=== PATIENT | male | born 1945 | race Caucasian/White ===

== ENCOUNTER → 2016-11-21 | Outpatient (CLI) | payer BC ==
[~2016-11-21] MED LIST: ASPI81TA28 PO; CHOL400T; LISI-461 PO; SIMV20TA2 PO
--- NOTE | 2016-11-25 12:40 | CODING QUERY MEDICAL NECESSITY ---
CQSUPPORTING DIAGNOSIS NEEDED A supporting diagnosis is required for the test/procedure performed on this patient in order for us to be reimbursed by the patient's insurance. Please provide a supporting diagnosis for the following test/procedure listed below next to the test name along with your signature. *If there is no additional diagnosis for this patient that would support the following test/procedure please document that below next to the test/procedure. Test(s)/Procedure(s) that require a supporting diagnosis: JAZZ 11/21/16 BONE MINERAL DENSITY STUDY Provider Signature: Date: Thank you Joyce Narayanan Health Information Management Once completed, please kindly fax back to [phone] For questions please call [phone]
== END | disposition home or self-care (01) ==
LOC: C.MAMM 14:18
PROVIDERS: ATTEND Internal Medicine
DX: M85.80 Other specified disorders of bone density and structure, unspecified site (principal); Z87.828 Personal history of other (healed) physical injury and trauma

== ENCOUNTER → 2016-11-23 | Outpatient (CLI) | payer BC ==
[2016-11-23 12:50] LABS: BASO % 0.9 %; BASO ABS # 0.05 K/uL (0-0.2); COMPLETE YES; EOS % 7.6 %; HEMATOCRIT 40.4 % (42-52); IG% 0.2 %; LYMPH % 20.1 %; LYMPH ABS # 1.14 K/uL (1.2-3.4); MEAN CELL VOLUME 90.8 fL (80-100); MEAN CORPUSCULAR HEMOGLOBIN 30.8 pg (25-34); MEAN CORPUSCULAR HGB CONC 33.9 g/dl (32-36); MEAN PLATELET VOLUME 10.2 fL (7.4-10.4); MONO % 14.1 %; NEUT % 57.1 %; PLATELET COUNT 269 K/uL (130-400); RED BLOOD COUNT 4.45 M/uL (4.7-6.1); WHITE BLOOD COUNT 5.67 K/uL (4.8-10.8)
[2016-11-23 13:09] LABS: ESTIMATED AVERAGE GLUCOSE 120 mg/dl; HA1C FLAG Normal (Normal)
[2016-11-23 13:20] LABS: ALT/SGPT 32 U/L (12-78); AST/SGOT 20 U/L (15-37); BLOOD UREA NITROGEN 16 mg/dl (7-18); BUN/CREATININE RATIO 15.7 (10-20); CALCIUM 9.3 mg/dl (8.5-10.1); CARBON DIOXIDE 24 mmol/L (21-32); CHLORIDE 106 mmol/L (98-107); GLUCOSE 84 mg/dl (70-99); POTASSIUM 4.3 mmol/L (3.5-5.1); SODIUM 141 mmol/L (136-145)
[2016-11-23 13:31] LABS: ALB/GLOB RATIO 1.1 (0.9-2); ALKALINE PHOSPHATASE 63 U/L (45-117); CHOLESTEROL 177 mg/dl (0-200); CHOLESTEROL/HDL RATIO 2.4; HDL CHOLESTEROL 74 mg/dl; LDL CHOLESTEROL CALCULATED 89 mg/dl; THYROID STIMULATING HORMONE 0.557 uIu/ml (0.300-4.500); TRIGLYCERIDES 70 mg/dl (0-150); VERY LOW DENSITY LIPOPROT CALC 14 mg/dl
== END | disposition home or self-care (01) ==
LOC: C.LABBFT 10:59
PROVIDERS: ATTEND Internal Medicine
DX: E78.00 Pure hypercholesterolemia, unspecified (principal); I10 Essential (primary) hypertension; R73.01 Impaired fasting glucose

== ENCOUNTER → 2017-02-09 | Outpatient (CLI) | payer BC | END | disposition home or self-care (01) | LOC: C.LABBFT 13:56 | PROVIDERS: ATTEND Urology | DX: C61 Malignant neoplasm of prostate (principal) ==

== ENCOUNTER → 2017-05-26 | Outpatient (CLI) | payer BC ==
[2017-05-26 12:30] LABS: BASO % 0.5 %; BASO ABS # 0.03 K/uL (0-0.2); COMPLETE YES; EOS % 6.5 %; HEMATOCRIT 42.5 % (42-52); IG% 0.3 %; LYMPH % 19.7 %; LYMPH ABS # 1.27 K/uL (1.2-3.4); MEAN CELL VOLUME 91.6 fL (80-100); MEAN CORPUSCULAR HEMOGLOBIN 30.6 pg (25-34); MEAN CORPUSCULAR HGB CONC 33.4 g/dl (32-36); MEAN PLATELET VOLUME 10.5 fL (7.4-10.4); MONO % 14.4 %; NEUT % 58.6 %; PLATELET COUNT 276 K/uL (130-400); RED BLOOD COUNT 4.64 M/uL (4.7-6.1); WHITE BLOOD COUNT 6.46 K/uL (4.8-10.8)
[2017-05-26 13:12] LABS: ALT/SGPT 31 U/L (12-78); BLOOD UREA NITROGEN 20 mg/dl (7-18); BUN/CREATININE RATIO 18.5 (10-20); CALCIUM 9.5 mg/dl (8.5-10.1); CARBON DIOXIDE 23 mmol/L (21-32); CHLORIDE 107 mmol/L (98-107); CHOLESTEROL 180 mg/dl (0-200); GLUCOSE 90 mg/dl (70-99); POTASSIUM 4.6 mmol/L (3.5-5.1); SODIUM 138 mmol/L (136-145); TRIGLYCERIDES 48 mg/dl (0-150); VERY LOW DENSITY LIPOPROT CALC 10 mg/dl
[2017-05-26 13:22] LABS: ALB/GLOB RATIO 1.1 (0.9-2); ALKALINE PHOSPHATASE 61 U/L (45-117); AST/SGOT 22 U/L (15-37); CHOLESTEROL/HDL RATIO 2.6; HDL CHOLESTEROL 69 mg/dl; LDL CHOLESTEROL CALCULATED 101 mg/dl; THYROID STIMULATING HORMONE 0.958 uIu/ml (0.300-4.500)
[2017-05-26 13:23] LABS: ESTIMATED AVERAGE GLUCOSE 120 mg/dl; HA1C FLAG Normal (Normal)
== END | disposition home or self-care (01) ==
LOC: C.LABBFT 09:19
PROVIDERS: ATTEND Internal Medicine
DX: E78.00 Pure hypercholesterolemia, unspecified (principal); I10 Essential (primary) hypertension; R73.01 Impaired fasting glucose

== ENCOUNTER → 2017-08-22 | Outpatient (CLI) | payer BC | END | disposition home or self-care (01) | LOC: C.LABBFT 09:29 | PROVIDERS: ATTEND Urology | DX: C61 Malignant neoplasm of prostate (principal) ==

== ENCOUNTER → 2017-12-06 | Outpatient (CLI) | payer BC ==
[2017-12-06 12:27] LABS: HEMATOCRIT 43.3 % (42-52); HEMOGLOBIN 14.7 g/dL (14.0-18.0); MEAN CELL VOLUME 93.1 fL (80-100); MEAN CORPUSCULAR HEMOGLOBIN 31.6 pg (25-34); MEAN CORPUSCULAR HGB CONC 33.9 g/dl (32-36); PLATELET COUNT 257 K/uL (130-400); RED CELL DISTRIBUTION WIDTH CV 13.6 % (11.5-14.5); RED CELL DISTRIBUTION WIDTH SD 46.3 fL (36.4-46.3); WHITE BLOOD COUNT 6.62 K/uL (4.8-10.8)
[2017-12-06 12:51] LABS: HEMOGLOBIN A1C 5.7 % (4.5-5.6)
[2017-12-06 12:58] LABS: ALBUMIN 3.9 gm/dl (3.4-5.0); BLOOD UREA NITROGEN 18 mg/dl (7-18); CALCIUM 9.6 mg/dl (8.5-10.1); CARBON DIOXIDE 25 mmol/L (21-32); CREATININE 1.04 mg/dl (0.60-1.40); GLUCOSE 95 mg/dl (70-99); POTASSIUM 4.8 mmol/L (3.5-5.1); SODIUM 138 mmol/L (136-145)
[2017-12-06 13:04] LABS: ALKALINE PHOSPHATASE 54 U/L (45-117); ALT/SGPT 27 U/L (12-78); AST/SGOT 18 U/L (15-37); CHOLESTEROL 165 mg/dl (0-200); LDL CHOLESTEROL CALCULATED 85 mg/dl; TOTAL PROTEIN 7.8 gm/dl (6.4-8.2)
== END | disposition home or self-care (01) ==
LOC: C.LABBFT 10:05
PROVIDERS: ATTEND Internal Medicine
DX: E78.00 Pure hypercholesterolemia, unspecified (principal); I10 Essential (primary) hypertension; R73.01 Impaired fasting glucose

== ENCOUNTER → 2018-02-12 | Day surgery (SDC) | payer BC ==
[2018-01-30 08:53] VITALS: Ht 175.3 cm; Wt 74.1 kg
[~2018-02-12] VITALS: Ht 175.3 cm; Wt 74.1 kg
[~2018-02-12] MED LIST changes: +ASPCH81X PO; -ASPI81TA28 PO; +CHOL100010 PO; -CHOL400T; +LIDOCAINE HCL 2% 2 ML VIAL (20MG/ML) ONE; +PHENYLEPHRINE 100MCG/ML 5ML SYR ONE; +PROPOFOL IV EMULSION 10 MG/ML 20 ML VIAL IV ONE; +SODIUM CHLORIDE 0.9% 500ML 500 ML IV ONE
--- NOTE | 2018-02-12 10:40 | Endo History and Physical ---
History & Physical Date of Service: Feb 12, 2018. Chief Complaint: HX OF POLYPS Referring Physician: DR VELAZQUEZ History of Present Illness 73 yo CM who presents for colonoscopy secondary to history of colon polyps. Past Surgical History Hx Cardiac Surgery: No Hx Internal Defibrillator: No Hx Pacemaker: No Hx Abdominal Surgery: Yes (APPY, INGUINAL HERNIA) Hx of Implantable Prosthesis: No Hx Post-Op Nausea and Vomiting: No Hx Cancer Surgery: Yes (TOTAL PROSTATECTOMY) Hx Thoracic Surgery: No Hx Orthopedic: No Hx Urinary Tract Surgery: No Family History None Social History Smoking Status: Never Smoker Hx Substance Use: No Hx Alcohol Use: Yes (1 GLASS OF WINE DAILY ON AVERAGE) Allergies Coded Allergies: NO KNOWN DRUG ALLERGIES (Verified Allergy, Unknown, ., 02/12/18) Uncoded Allergies: POISON SUDHEER (Allergy, Unknown, IRRITATION, 01/30/18) Current Medications Reported Home Medications Medications Dose Route/Sig Max Daily Dose Days Date Category Vitamin D (Cholecalciferol) 1,000 Unit Tab 1 Tab PO HS 01/30/18 Reported Aspirin Chewable (Aspirin) 81 Mg Chew 81 Mg PO HS 01/30/18 Reported Zestril (Lisinopril) 10 Mg Tab 10 Mg PO HS 01/30/18 Reported Zocor (Simvastatin) 20 Mg Tab 20 Mg PO HS 01/30/18 Reported Vital Signs Weight (Kilograms): 74.09 Height (Feet): 5 Height (Inches): 9 Date Time Temp Pulse Resp B/P (MAP) Pulse Ox O2 Delivery O2 Flow Rate FiO2 02/12/18 10:33 36.6 82 18 140/80 (100) 96 Room Air Physical Exam General Appearance: WD/WN, no apparent distress Respiratory/Chest: Auscultation: breath sounds normal Cardiovascular: Heart Auscultation: RRR Abdomen: Bowel Sounds: normal Inspection & Palpation: soft, non-distended, no tenderness, guarding & rebound Assessment and Plan Assessment: 73 yo CM who presents for colonoscopy secondary to history of colon polyps. Plan: Proceed with colonoscopy.
--- NOTE | 2018-02-12 11:38 | Discharge Instructions ---
Endoscopy Patient Instructions Date / Procedure(s) Performed Feb 12, 2018. Colonoscopy Allergy Information Coded Allergies: NO KNOWN DRUG ALLERGIES (Verified Allergy, Unknown, ., 02/12/18) Uncoded Allergies: POISON SUDHEER (Allergy, Unknown, IRRITATION, 01/30/18) Discharge Date / Findings Feb 12, 2018. Colon polyps Internal hemorrhoids Medication Instructions Stopped Medication(s): ASPIRIN OK to resume all medications today as prescribed Reported Home Medications Medications Dose Route/Sig Max Daily Dose Days Date Category Vitamin D (Cholecalciferol) 1,000 Unit Tab 1 Tab PO HS 01/30/18 Reported Aspirin Chewable (Aspirin) 81 Mg Chew 81 Mg PO HS 01/30/18 Reported Zestril (Lisinopril) 10 Mg Tab 10 Mg PO HS 01/30/18 Reported Zocor (Simvastatin) 20 Mg Tab 20 Mg PO HS 01/30/18 Reported Provider Instructions Activity Restrictions - No exercising or heavy lifting for 24 hours. - Do not drink alcohol the day of the procedure. - Do not drive a car or operate machinery until the day after the procedure. - Do not make any important decisions or sign important papers in 24 hours after the procedure. Following Day: - Return to full activity which may include returning to work/school. Diet Start your diet with liquids and light foods (jello, soup, juice, toast). Then eat your usual diet if not nauseated. Treatment For Common After Affects For mild abdominal pain, bloating, or excessive gas: - Rest - Eat lightly - Lie on right side Follow-Up Information Follow-up with DR VELAZQUEZ as scheduled Anesthesia Information What You Should Know You have had a procedure that required some medicine to reduce anxiety and discomfort. This treatment is called moderate sedation. After receiving the treatment, you may be sleepy, but you will be able to breathe on your own. The effects of the treatment may last for several hours. Follow these instructions along with Activity/Diet recommendations noted above: * Do NOT do anything where dizziness or clumsiness would be dangerous. * Rest quietly at home today, then you can be up and about tomorrow. * Have a responsible person stay with you the rest of today. * You may have had an I.V. today. If so, you may take the dressing off later today. Recommendations Call your doctor if: * Trouble breathing * Continuous vomiting for more than 24 hours * Temperature above 101 degrees * Severe abdominal pain or bloating * Pain not relieved by pain medicine ordered * There is increased drainage or redness from any incision * A large amount of rectal bleeding greater than 2-3 tablespoons. (If you had a polyp/s removed or have hemorrhoids, a small amount of blood - from the rectum is to be expected.) * You have any unanswered questions or concerns. IN THE EVENT OF A SERIOUS EMERGENCY, GO TO THE NEAREST EMERGENCY ROOM Your discharge instructions were prepared by provider Main Fletcher. Patient Instructions Signature Page Dima Morales Patient (or Guardian) Signature/Date: I have read and understand the instructions given to me by my caregivers. Caregiver/RN/Doctor Signature/Date: The above-named patient and/or guardian has received patient instructions on this date. + Original Patient Signature Page (only) stays with chart. Please make copy for patient.
--- NOTE | 2018-02-12 11:50 | GI REPORT ---
Procedure Date: 02/12/2018 10:48 AM Procedure: Colonoscopy Indications: High risk colon cancer surveillance: Personal history of colonic polyps Medicines: Monitored Anesthesia Care Complications: No immediate complications. Estimated Blood Loss: Estimated blood loss: none. Procedure: Pre-Anesthesia Assessment: - Prior to the procedure, a History and Physical was performed, and patient medications and allergies were reviewed. The patient's tolerance of previous anesthesia was also reviewed. The risks and benefits of the procedure and the sedation options and risks were discussed with the patient. All questions were answered, and informed consent was obtained. Prior Anticoagulants: The patient has taken aspirin, last dose was 7 days prior to procedure. ASA Grade Assessment: II - A patient with mild systemic disease. After reviewing the risks and benefits, the patient was deemed in satisfactory condition to undergo the procedure. After I obtained informed consent, the scope was passed under direct vision. Throughout the procedure, the patient's blood pressure, pulse, and oxygen saturations were monitored continuously. The scope was introduced through the anus and advanced to the terminal ileum. The colonoscopy was performed without difficulty. The patient tolerated the procedure well. The quality of the bowel preparation was good. The terminal ileum, ileocecal valve, appendiceal orifice, and rectum were photographed. Findings: The perianal and digital rectal examinations were normal. Two sessile polyps were found in the ascending colon. The polyps were 4 to 5 mm in size. These polyps were removed with a cold snare. Resection and retrieval were complete. Non-bleeding internal hemorrhoids were found during retroflexion. The hemorrhoids were small. Impression: - Two 4 to 5 mm polyps in the ascending colon, removed with a cold snare. Resected and retrieved. - Non-bleeding internal hemorrhoids. Recommendation: - Resume previous diet. - Continue present medications. - Repeat colonoscopy for surveillance based on pathology results. - Return to primary care physician as previously scheduled. Main Fletcher DO 02/12/2018 11:49:59 AM This report has been signed electronically. Note Initiated On: 02/12/2018 10:48 AM I attest to the content of the Intraoperative Record and orders documented therein, exceptions below
[2018-02-12 12:07] VITALS: BP 107/74; PULSE 64; O2SAT 95
--- NOTE | 2018-02-12 12:20 | Anesthesiology Progress Note ---
Anesthesia Post Op Note Date & Time Feb 12, 2018 at 12:20 Vital Signs Pain Intensity: 0 Vital Signs Past 12 Hours Date Time Temp Pulse Resp B/P (MAP) Pulse Ox O2 Delivery O2 Flow Rate FiO2 02/12/18 12:07 64 20 107/74 (85) 95 Room Air 02/12/18 11:53 64 20 106/70 (82) 94 Room Air 02/12/18 11:38 64 16 92/58 (69) 95 Room Air 02/12/18 10:33 36.6 82 18 140/80 (100) 96 Room Air Notes Mental Status: alert / awake / arousable, participated in evaluation Pt Amnestic to Procedure: Yes Nausea / Vomiting: adequately controlled Pain: adequately controlled Airway Patency, RR, SpO2: stable & adequate BP & HR: stable & adequate Hydration State: stable & adequate Anesthetic Complications: no major complications apparent
== END | disposition home or self-care (01) ==
LOC: C.GI 09:56
PROVIDERS: ATTEND Internal Medicine
DX: Z12.11 Encounter for screening for malignant neoplasm of colon (principal); D12.2 Benign neoplasm of ascending colon; Z86.010 Personal history of colon polyps; I10 Essential (primary) hypertension; K21.9 Gastro-esophageal reflux disease without esophagitis; E78.5 Hyperlipidemia, unspecified; K64.8 Other hemorrhoids; Z79.82 Long term (current) use of aspirin; Z90.49 Acquired absence of other specified parts of digestive tract; Z90.79 Acquired absence of other genital organ(s)

== ENCOUNTER → 2018-02-21 | Outpatient (CLI) | payer BC ==
[~2018-02-21] MED LIST changes: -LIDOCAINE HCL 2% 2 ML VIAL (20MG/ML) ONE; -PHENYLEPHRINE 100MCG/ML 5ML SYR ONE; -PROPOFOL IV EMULSION 10 MG/ML 20 ML VIAL IV ONE; -SODIUM CHLORIDE 0.9% 500ML 500 ML IV ONE
== END | disposition home or self-care (01) ==
LOC: C.LABBFT 10:29
PROVIDERS: ATTEND Urology
DX: C61 Malignant neoplasm of prostate (principal)

== ENCOUNTER 2023-02-17 11:00 | Inpatient (IN) ==
--- NOTE | 2023-02-17 11:07 | Emergency Department Note ---
Impression & Plan Altered mental status, Seizure, Diaphoresis, History of stroke ED Provider Note NAME: ISI HERNANDEZ AGE: 78 SEX: M : 1945 ARRIVES VIA: Ambulance INFORMANT: [Patient][, ems] ED PROVIDER(S): [Blaze Granados MD] Patient first seen by me in the hallway at 1100 CHIEF COMPLAINT: Stroke alert HISTORY OF PRESENT ILLNESS: The patient is a 78-year-old male who was last seen by his at around 650, just over 4 hours ago. He was at baseline. When seen by his just prior to arrival, the patient was not responding. He would answer questions intermittently and seemed coherent but then would slump again. EMS was summoned. When seen by EMS, there was concern for stroke as the patient had a gaze to the left and seemed weak in his left arm. He would not respond to que stioning. He was noted to be diaphoretic. He had lost stool continence. The patient can give no history. He is currently nonverbal with a gaze to the left. PMHx/PSHx: See Below SOCIAL HISTORY: See Below. PHYSICAL EXAM: GENERAL: Patient is in no acute distress. HEENT: No acute trauma, normocephalic atraumatic, mucous membranes moist, no nasal congestion. There is a leftward gaze. No obvious facial droop NECK: No stridor, no adenopathy, no meningismus, trachea is midline. LUNGS: Clear to auscultation bilaterally, no wheeze, no rhonchi, breath sounds equal. HEART: Without murmurs gallops or rubs, regular rate and rhythm. ABDOMEN: Soft, nontender, bowel sounds positive, no peritonitis. EXTREMITIES: No cyanosis or edema, full range of motion of all the joints without pain or difficulty, no signs for acute trauma. NEUROLOGIC: Nonverbal. Leftward gaze noted. Awake. Will not follow commands SKIN: No rash, no jaundice, no diaphoresis. DIFFERENTIAL DIAGNOSIS: Stroke, intracranial bleeding, seizure, electrolyte imbalance, anemia, dysrhythmia, sepsis, among others. EMERGENCY DEPARTMENT COURSE/PROCEDURES: Prior/Outside records reviewed: Previous urology note ECG per my interpretation: Indication was possible stroke. The ECG shows a normal sinus rhythm with a rate of 86. There was some baseline artifact. No ST elevation, no PVCs. The QTc was 502. Continuous Cardiac Monitoring per my interpretation: An order was placed for continuous cardiac monitoring. The monitor shows a rate of 74 with normal sinus rhythm. Critical Care Note: I have personally spent 46 minutes of critical care time in the direct management of this patient. This includes bedside care, interpretation of diagnostic studies, and testing, discussion with consultants, patient, and family members, and other required patient management activities. This 46 minutes is in excess of all separately billable procedures. MEDICAL DECISION MAKING: There is no leukocytosis. The patient does have a mild anemia, this is baseline when looking back at previous testing. There was a normal platelet count. No coagulopathy. No renal failure or significant electrolyte abnormality. Lactic acid level was not elevated making severe sepsis less likely. There was no concerning liver enzyme elevation. ECG showed a normal sinus rhythm, no obvious ischemia, no dysrhythmia. Cardiac enzyme testing x1 was not consistent with acute cardiac injury. Urinalysis did not show infection. COVID, influenza and RSV test are currently pending. Brain CT showed older strokes, no acute bleed or mass effect. CT angio of the head and neck were performed. Some cervical artery stenosis was seen, no clot or large vessel occlusion found. Chest film per my review showed some chronic change, no pneumonia or significant CHF. On exam, the patient was not responding to voice. He did have a gaze to the left. The patient presents with an altered mental state. A stroke alert was called. Protocol was followed. I did speak with the [place] stroke neurologist, Dr. Perkins. She did do an assessment via telemedicine. The patient was treated for the possibility of seizure causing his presentation. He was given 1.5 mg of IV Ativan, 2000 mg of IV Keppra, 1 g of IV fosphenytoin. The patient was not a candidate for tPA as he has shown symptoms for over 4 timo rs With the above treatment, the patient's gaze normalized, he seemed to be much more comfortable. In short, he seemed improved. I did speak with the patient's , I spoke with case management, h ospitalization is indicated. Further work-up is warranted. At this point, the cause for his entire presentation is unclear. DISPOSITION: The patient's presentation and findings warrant a hospital stay and further work-up. Past Med/Surg History Medical History Hypercholesterolemia Hypertension Prostate cancer 2013...PROSTATECTOMY, RADIATION THERAPY & 2 YRS OF LUPRON THERAPY Surgical History History of appendectomy History of colonoscopy (02/12/18) History of hernia surgery History of orchiectomy History of prostatectomy Family History Mother Breast cancer Stroke Hypertension Grandfather (Maternal) Myocardial infarction Brother Arthritis Father Renal failure Coronary heart disease Denies family history of Ovarian cancer Prostate cancer Colorectal cancer Social History Smoking Status: Never smoker Second Hand Exposure: No; Hx Alcohol Use: Yes Alcohol type: beer and wine Alcohol Intake Frequency: 2-3 x/Week Alcohol Intake Frequency Comment: occasionally Hx Substance Use: No Preferred Language: Romansh Communication Ability: Effective Visual Impairment: No Limitations Hearing Ability: Hard of Hearing 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 Beliefs That Will Affect Care: None marital status: Current Living Situation: Spouse current occupational status: retired current occupation: retired from career in [employer] Feels Safe at Home: Yes Childhood Exposure to Second-Hand Smoke: No Dental Care, Regularly: Yes Physical Activity Frequency: Daily Seatbelt Use: always Sunscreen Use: No (wears a hat ) Assistive Devices: Glasses Allergies Allergies Allergy/AdvReac Type Severity Reaction Status Date / Time POISON SUDHEER Allergy Unknown IRRITATION Uncoded 09/16/22 08:54 Home Meds Home Medications Medication Instructions Recorded Confirmed aspirin 81 mg tablet 81 mg PO DAILY 07/08/19 09/16/22 cholecalciferol (vitamin D3) 25 1,000 units PO DAILY 07/08/19 09/16/22 mcg (1,000 unit) tablet abiraterone 500 mg tablet 1,000 mg PO DAILY 09/16/22 Previous Rx's Medication Instructions Recorded ibuprofen 200 mg tablet (Advil) 600 mg PO QID PRN fever or pain 04/22/21 #30 tabs lisinopril 10 mg tablet 10 mg PO HS #90 tabs 07/01/22 simvastatin 20 mg tablet 20 mg PO HS #90 tabs 07/01/22 adjuvant AS01B (PF)vial 1 of 2 0.5 ml IM ONCE #0.5 mL 09/16/22 (Shingrix Adjuvant Component (PF) intramuscular suspension) leuprolide acetate (6 month) 45 mg 45 mg IM Q24W #1 ea 09/16/22 intramuscular syringe kit (Lupron Depot) ciprofloxacin HCl 500 mg tablet 500 mg PO BID 5 days #10 tabs 10/20/22 nirmatrelvir 300 mg (150 mg See Rx Instructions PO .COMPLEX 11/25/22 x2)-ritonavir 100 mg tablet,dose #30 ea pack(EUA) (Paxlovid) Results & Data (ED) Vital Signs Vital Signs - 24 hr 02/17/23 10:48 02/17/23 10:49 02/17/23 11:49 Temperature Source Oral Oral Pulse Rate 89 80 Pulse Rate [Right Finger] Pulse Rate from SpO2 Sensor 79 Pulse Rhythm [Right Finger] Pulse Strength [Right Finger] Respiratory Rate 16 23 Respiratory Effort / Characteristics Respiratory Depth Respiratory Pattern Blood Pressure 159/99 H Blood Pressure [Right Arm] Blood Pressure Mean 119 Blood Pressure Mean [Right Arm] Blood Pressure Position [Right Arm] Pulse Oximetry 96 95 Oxygen Delivery Method Nasal Cannula Nasal Cannula Oxygen Flow Rate 4 Sepsis Recent Fever Within 48 Hours Yes Sepsis New/Unexplained Change in Mental Status Yes Sepsis Action Taken by Nursing Physician Notified 02/17/23 11:50 02/17/23 11:55 02/17/23 11:59 Temperature Source Pulse Rate 79 78 79 Pulse Rate [Right Finger] Pulse Rate from SpO2 Sensor 77 77 78 Pulse Rhythm [Right Finger] Pulse Strength [Right Finger] Respiratory Rate 20 24 23 Respiratory Effort / Characteristics Respiratory Depth Respiratory Pattern Blood Pressure Blood Pressure [Right Arm] Blood Pressure Mean Blood Pressure Mean [Right Arm] Blood Pressure Position [Right Arm] Pulse Oximetry 94 96 94 Oxygen Delivery Method Oxygen Flow Rate Sepsis Recent Fever Within 48 Hours Sepsis New/Unexplained Change in Mental Status Sepsis Action Taken by Nursing 02/17/23 11:59 02/17/23 12:00 02/17/23 12:05 Temperature Source Pulse Rate 76 77 Pulse Rate [Right Finger] Pulse Rate from SpO2 Sensor 77 77 Pulse Rhythm [Right Finger] Pulse Strength [Right Finger] Respiratory Rate 20 17 Respiratory Effort / Characteristics Respiratory Depth Respiratory Pattern Blood Pressure 175/99 H Blood Pressure [Right Arm] Blood Pressure Mean 124 Blood Pressure Mean [Right Arm] Blood Pressure Position [Right Arm] Pulse Oximetry 95 95 Oxygen Delivery Method Oxygen Flow Rate Sepsis Recent Fever Within 48 Hours Sepsis New/Unexplained Change in Mental Status Sepsis Action Taken by Nursing 02/17/23 13:00 Temperature Source Pulse Rate Pulse Rate [Right Finger] 74 Pulse Rate from SpO2 Sensor Pulse Rhythm [Right Finger] Regular Pulse Strength [Right Finger] Normal Respiratory Rate 28 H Respiratory Effort / Characteristics Spontaneous Respiratory Depth Normal Respiratory Pattern Tachypnea Blood Pressure Blood Pressure [Right Arm] 136/85 Blood Pressure Mean Blood Pressure Mean [Right Arm] 102 Blood Pressure Position [Right Arm] Lying Pulse Oximetry 96 Oxygen Delivery Method Nasal Cannula Oxygen Flow Rate 4 Sepsis Recent Fever Within 48 Hours Sepsis New/Unexplained Change in Mental Status Sepsis Action Taken by Correction Medications Current Medication List: was personally reviewed by me Laboratory Data Attestation: I reviewed the patient's lab results. 02/17/23 11:24 02/17/23 11:24 Lab Results 02/17/23 02/17/23 02/17/23 Range/Units 11:22 11:24 11:24 WBC 6.25 (4.8-10.8) K/ul RBC 4.13 L (4.70-6.10) M/uL Hgb 12.7 L (14.0-18.0) g/dl POC Hgb (14.0-18.0) g/dl Hct 38.6 L (42.0-52.0) % POC Hct (42-52) % MCV 93.5 (80.0-100.0) fL MCH 30.8 (25.0-34.0) pg MCHC 32.9 (32.0-36.0) g/dL RDW Std Deviation 44.6 (36.4-46.3) fL RDW Coeff of Dean 13.0 (11.5-14.5) % Plt Count 189 (130-400) K/uL MPV 10.2 (9.4-12.4) fL Immature Gran % (Auto) 0.3 % Neut % (Auto) 71.7 % Lymph % (Auto) 20.3 % Mccormick % (Auto) 5.8 % Eos % (Auto) 1.4 % Baso % (Auto) 0.5 % Neut # (Auto) 4.48 (1.40-6.50) K/uL Lymph # (Auto) 1.27 (1.2-3.4) K/uL Mccormick # (Auto) 0.36 (0.11-0.59) K/uL Eos # (Auto) 0.09 (0-0.50) K/uL Baso # (Auto) 0.03 (0-0.2) K/uL Immature Gran # (Auto) 0.02 (0.01-0.20) K/uL PT 10.9 (9.0-12.0) Seconds INR 1.0 (0.9-1.1) APTT 23.9 (21.0-31.0) Seconds PTT Ratio 0.9 POC Sodium (135-144) mmol/L Sodium (136-145) mmol/L POC Potassium (3.3-5.0) mmol/L Potassium (3.5-5.1) mmol/L POC Chloride (101-112) mmol/L Chloride (98-107) mmol/L Carbon Dioxide (21-32) mmol/L POC Total CO2 (24-31) mmol/L Anion Gap (3-11) POC Anion Gap (16-25) mmol/L POC BUN (7-18) mg/dl BUN (6-23) mg/dl Creatinine (0.6-1.4) mg/dl POC Creatinine (0.6-1.3) mg/dl Est Cr Clr Drug Dosing ml/min Est GFR ( Amer) ml/min Est GFR (Non-Af Amer) ml/min BUN/Creatinine Ratio (10-20) Glucose (70-99(Fasting)) mg/dl POC Glucose 144 H (70-99) mg/dl POC Glucose (other) (70-99) mg/dl Lactate (0.4-2.0) mmol/L Calcium (8.6-10.3) mg/dl POC Ioniz Calcium Maddie (1.12-1.32) mmol/l Magnesium (1.7-2.4) mg/dl Total Bilirubin (0.2-1.0) mg/dl AST (13-39) U/L ALT (7-52) U/L Alkaline Phosphatase (34-104) U/L Troponin I High Sens (0-20) pg/ml Total Protein (6.0-8.3) gm/dl Albumin (3.4-5.0) gm/dl Globulin (2.5-4.0) gm/dl Albumin/Globulin Ratio (0.9-2) Urine Color Urine Appearance (Clear) Urine pH (4.5-7.5) Ur Specific [place] (1.000-1.030) Urine Protein (Negative) Urine Glucose (UA) (Negative) Urine Ketones (Negative) Urine Blood (Negative) Urine Nitrite (Negative) Urine Bilirubin (Negative) Urine Urobilinogen (Negative) Ur Leukocyte Esterase (Negative) 02/17/23 02/17/23 02/17/23 Range/Units 11:24 11:24 11:24 WBC (4.8-10.8) K/ul RBC (4.70-6.10) M/uL Hgb (14.0-18.0) g/dl POC Hgb 12.9 L (14.0-18.0) g/dl Hct (42.0-52.0) % POC Hct 38 L (42-52) % MCV (80.0-100.0) fL MCH (25.0-34.0) pg MCHC (32.0-36.0) g/dL RDW Std Deviation (36.4-46.3) fL RDW Coeff of Dean (11.5-14.5) % Plt Count (130-400) K/uL MPV (9.4-12.4) fL Immature Gran % (Auto) % Neut % (Auto) % Lymph % (Auto) % Mccormick % (Auto) % Eos % (Auto) % Baso % (Auto) % Neut # (Auto) (1.40-6.50) K/uL Lymph # (Auto) (1.2-3.4) K/uL Mccormick # (Auto) (0.11-0.59) K/uL Eos # (Auto) (0-0.50) K/uL Baso # (Auto) (0-0.2) K/uL Immature Gran # (Auto) (0.01-0.20) K/uL PT (9.0-12.0) Seconds INR (0.9-1.1) APTT (21.0-31.0) Seconds PTT Ratio POC Sodium 139 (135-144) mmol/L Sodium 136 (136-145) mmol/L POC Potassium 3.6 (3.3-5.0) mmol/L Potassium 3.6 (3.5-5.1) mmol/L POC Chloride 101 (101-112) mmol/L Chloride 105 (98-107) mmol/L Carbon Dioxide 27 (21-32) mmol/L POC Total CO2 25 (24-31) mmol/L Anion Gap 4 (3-11) POC Anion Gap 17.0 (16-25) mmol/L POC BUN 18 (7-18) mg/dl BUN 19 (6-23) mg/dl Creatinine 0.84 (0.6-1.4) mg/dl POC Creatinine 0.8 (0.6-1.3) mg/dl Est Cr Clr Drug Dosing 74.1 ml/min Est GFR ( Amer) 97.2 ml/min Est GFR (Non-Af Amer) 83.9 ml/min BUN/Creatinine Ratio 22.6 H (10-20) Glucose 152 H (70-99(Fasting)) mg/dl POC Glucose (70-99) mg/dl POC Glucose (other) 150 H (70-99) mg/dl Lactate 0.9 (0.4-2.0) mmol/L Calcium 8.6 (8.6-10.3) mg/dl POC Ioniz Calcium Maddie 1.21 (1.12-1.32) mmol/l Magnesium 1.8 (1.7-2.4) mg/dl Total Bilirubin 0.6 (0.2-1.0) mg/dl AST 15 (13-39) U/L ALT 11 (7-52) U/L Alkaline Phosphatase 52 (34-104) U/L Troponin I High Sens 5.9 (0-20) pg/ml Total Protein 6.5 (6.0-8.3) gm/dl Albumin 3.7 (3.4-5.0) gm/dl Globulin 2.8 (2.5-4.0) gm/dl Albumin/Globulin Ratio 1.3 (0.9-2) Urine Color Urine Appearance (Clear) Urine pH (4.5-7.5) Ur Specific [place] (1.000-1.030) Urine Protein (Negative) Urine Glucose (UA) (Negative) Urine Ketones (Negative) Urine Blood (Negative) Urine Nitrite (Negative) Urine Bilirubin (Negative) Urine Urobilinogen (Negative) Ur Leukocyte Esterase (Negative) 02/17/23 Range/Units 12:35 WBC (4.8-10.8) K/ul RBC (4.70-6.10) M/uL Hgb (14.0-18.0) g/dl POC Hgb (14.0-18.0) g/dl Hct (42.0-52.0) % POC Hct (42-52) % MCV (80.0-100.0) fL MCH (25.0-34.0) pg MCHC (32.0-36.0) g/dL RDW Std Deviation (36.4-46.3) fL RDW Coeff of Dean (11.5-14.5) % Plt Count (130-400) K/uL MPV (9.4-12.4) fL Immature Gran % (Auto) % Neut % (Auto) % Lymph % (Auto) % Mccormick % (Auto) % Eos % (Auto) % Baso % (Auto) % Neut # (Auto) (1.40-6.50) K/uL Lymph # (Auto) (1.2-3.4) K/uL Mccormick # (Auto) (0.11-0.59) K/uL Eos # (Auto) (0-0.50) K/uL Baso # (Auto) (0-0.2) K/uL Immature Gran # (Auto) (0.01-0.20) K/uL PT (9.0-12.0) Seconds INR (0.9-1.1) APTT (21.0-31.0) Seconds PTT Ratio POC Sodium (135-144) mmol/L Sodium (136-145) mmol/L POC Potassium (3.3-5.0) mmol/L Potassium (3.5-5.1) mmol/L POC Chloride (101-112) mmol/L Chloride (98-107) mmol/L Carbon Dioxide (21-32) mmol/L POC Total CO2 (24-31) mmol/L Anion Gap (3-11) POC Anion Gap (16-25) mmol/L POC BUN (7-18) mg/dl BUN (6-23) mg/dl Creatinine (0.6-1.4) mg/dl POC Creatinine (0.6-1.3) mg/dl Est Cr Clr Drug Dosing ml/min Est GFR ( Amer) ml/min Est GFR (Non-Af Amer) ml/min BUN/Creatinine Ratio (10-20) Glucose (70-99(Fasting)) mg/dl POC Glucose (70-99) mg/dl POC Glucose (other) (70-99) mg/dl Lactate (0.4-2.0) mmol/L Calcium (8.6-10.3) mg/dl POC Ioniz Calcium Maddie (1.12-1.32) mmol/l Magnesium (1.7-2.4) mg/dl Total Bilirubin (0.2-1.0) mg/dl AST (13-39) U/L ALT (7-52) U/L Alkaline Phosphatase (34-104) U/L Troponin I High Sens (0-20) pg/ml Total Protein (6.0-8.3) gm/dl Albumin (3.4-5.0) gm/dl Globulin (2.5-4.0) gm/dl Albumin/Globulin Ratio (0.9-2) Urine Color Yellow Urine Appearance Clear (Clear) Urine pH 7.5 (4.5-7.5) Ur Specific [place] 1.036 H (1.000-1.030) Urine Protein Negative (Negative) Urine Glucose (UA) Trace H (Negative) Urine Ketones Negative (Negative) Urine Blood Negative (Negative) Urine Nitrite Negative (Negative) Urine Bilirubin Negative (Negative) Urine Urobilinogen Negative (Negative) Ur Leukocyte Esterase Negative (Negative) Administered Medications Discontinued Medications Levetiracetam 2,000 mg/ Sodium (Chloride) 270 mls @ 999 mls/hr IV NOW STA Stop: 02/17/23 11:57 Last Infusion: 02/17/23 12:16 Dose: 0 mls/hr Documented By: JOHN PAUL Admin: 02/17/23 11:59 Dose: 999 mls/hr Documented By: JOHN PAUL Fosphenytoin Sodium 1,000 mgpe (/ Sodium Chloride) 70 mls @ 420 mls/hr IV NOW STA Stop: 02/17/23 12:06 Last Infusion: 02/17/23 12:23 Dose: 0 mls/hr Documented By: JOHN PAUL Admin: 02/17/23 12:12 Dose: 420 mls/hr Documented By: JOHN PAUL Ioversol (Optiray 320 500ml) 112 ml IV ONCE ONE Stop: 02/17/23 11:13 Last Admin: 02/17/23 11:13 Dose: 112 ml Documented By: HILARIO Lorazepam (Lorazepam 2 Mg/1 Ml Vial) 1 mg IV NOW STA Stop: 02/17/23 11:44 Last Admin: 02/17/23 11:51 Dose: 1 mg Documented By: JOHN PAUL Lorazepam (Lorazepam 2 Mg/1 Ml Vial) Confirm Administered Dose 2 mg .ROUTE .STK- MED ONE Stop: 02/17/23 11:46 Last Admin: 02/17/23 11:51 Dose: Not Given Documented By: JOHN PAUL Lorazepam (Lorazepam 2 Mg/1 Ml Vial) 0.5 mg IV NOW STA Stop: 02/17/23 11:58 Last Admin: 02/17/23 12:00 Dose: 0.5 mg Documented By: JOHN PAUL Imaging Data Radiologist's Impression: Chest X-Ray 02/17/23 10:49 XR chest 1V portable HISTORY: Confusion. neuro deficit, acute stroke suspected COMPARISON: Chest 10/26/2013. FINDINGS: No pneumothorax. No pleural effusions. The correct silhouette remains enlarged. There is mild diffuse interstitial thickening, unchanged. This is likely chronic. No new focal lung consolidations to suggest a pneumonia. No evidence for pulmonary edema. A few bibasilar linear densities favor subsegmental atelectasis. IMPRESSION: Cardiomegaly and mild chronic interstitial thickening again noted. Otherwise, no acute process within the chest. ACT 112: Negative or not required by law. Electronically signed by: Manuel Holbrook M.D. 02/17/2023 11:[address] 02/17/23 10:[address] DOSE: 1264.25 mGy.cm HISTORY: Confusion. neuro deficit, acute stroke suspected TECHNIQUE: Multiaxial CT images of the head were performed without the use of intravenous contrast. Automated exposure control was utilized for this study. A dose lowering technique was utilized adhering to the principles of ALARA. Comparison: None. Findings: The paranasal sinuses and mastoid air cells are clear. The calvarium and skull base are intact. There is no mass, hematoma, midline shift, acute infarct. White matter hypodensity is nonspecific but suggestive of microvascular ischemic change. The ventricles and sulci demonstrate mild age-related involutional changes. 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 There is an old lacunar infarct within the left basal ganglia. Impression: 1. No acute intracranial abnormality. 2. Old infarcts as described above. ACT 112: Negative or not required by law. Electronically signed by: Manuel Holbrook M.D. 02/17/2023 11:25 AM Head CTA 02/17/23 10:49 HEAD & NECK CTA HISTORY: Confusion. neuro deficit, acute stroke suspected TECHNIQUE: Multiaxial CT images of the head were performed following the intravenous administration of contrast to evaluate the major cerebral vessels. Multiaxial CT images of the neck were also performed following the intravenous administration of contrast to evaluate the major cervical vessels. Maximum intensity projection images were also obtained. A dose lowering technique was utilized adhering to the principles of ALARA. COMPARISON: Noncontrast head CT 02/17/2023. FINDINGS: There is no mass, hematoma, midline shift, or acute infarct. Visualized intracranial internal carotid arteries, distal vertebral arteries, and basilar artery are widely patent. There is no significant stenosis, occlusion, or aneurysm seen within the bilateral ACAs, MCAs, or industry operations investigator. An old left parietal lobe infarct again noted. Moderate calcified plaque within the bilateral carotid siphons. The major dural venous sinuses appear patent. The aortic arch and proximal great vessels are widely patent. There is no significant stenosis, occlusion, or dissection identified within the right common carotid, right internal carotid, or vertebral arteries. Moderate calcified plaque within the left carotid bifurcation resulting in up to 40% focal stenosis. Otherwise, the remaining left common and internal carotid arteries are widely patent. IMPRESSION: 1. No significant stenosis, occlusion, or aneurysm within the picayune of Pate. 2. Approximately 40% focal stenosis within the left carotid bifurcation due to the moderate calcified plaque. 3. The right carotid arteries and bilateral vertebral arteries are widely patent. ACT 112: Negative or not required by law. Electronically signed by: Manuel Holrbook M.D. 02/17/2023 11:32 AM Neck CTA 02/17/23 10:49 HEAD & NECK CTA HISTORY: Confusion. neuro deficit, acute stroke suspected TECHNIQUE: Multiaxial CT images of the head were performed following the intravenous administration of contrast to evaluate the major cerebral vessels. Multiaxial CT images of the neck were also performed following the intravenous administration of contrast to evaluate the major cervical vessels. Maximum intensity projection images were also obtained. A dose lowering technique was utilized adhering to the principles of ALARA. COMPARISON: Noncontrast head CT 02/17/2023. FINDINGS: There is no mass, hematoma, midline shift, or acute infarct. Visualized intracranial internal carotid arteries, distal vertebral arteries, and basilar artery are widely patent. There is no significant stenosis, occlusion, or aneurysm seen within the bilateral ACAs, MCAs, or industry operations investigator. An old left parietal lobe infarct again noted. Moderate calcified plaque within the bilateral carotid siphons. The major dural venous sinuses appear patent. The aortic arch and proximal great vessels are widely patent. There is no significant stenosis, occlusion, or dissection identified within the right common carotid, right internal carotid, or vertebral arteries. Moderate calcified plaque within the left carotid bifurcation resulting in up to 40% focal stenosis. Otherwise, the remaining left common and internal carotid arteries are widely patent. IMPRESSION: 1. No significant stenosis, occlusion, or aneurysm within the picayune of Pate. 2. Approximately 40% focal stenosis within the left carotid bifurcation due to the moderate calcified plaque. 3. The right carotid arteries and bilateral vertebral arteries are widely patent. ACT 112: Negative or not required by law. Electronically signed by: Manuel Holbrook M.D. 02/17/2023 11:32 AM Discharge Plan Visit Data Chief Complaint: Stroke Alert ED Provider: Blaze Granados Discharge Problem: Altered mental status, Seizure, Diaphoresis, History of stroke Patient Disposition: Admitted As Inpatient Condition: Serious Forms Stand Alone Forms: My [facility] [place] [facility] Prescriptions Prescriptions: No Action lisinopril 10 mg tablet 10 mg PO HS Qty: 90 3RF simvastatin 20 mg tablet 20 mg PO HS Qty: 90 3RF ciprofloxacin HCl 500 mg tablet 500 mg PO BID 5 Days Qty: 10 0RF abiraterone 500 mg tablet 1,000 mg PO DAILY Rx Instructions: must be taken on empty stomach, at least 1 hr before or 2 hrs after a meal/food Lupron Depot (6 Month) 45 mg syringe kit 45 mg IM Q24W Qty: 1 2RF Shingrix Adjuvant Component-PF Suspension 0.5 ml IM ONCE Qty: 0.5 1RF Rx Instructions: Please administer and repeat dose in 2-6 months Paxlovid (EUA) 300 mg (150 mg x 2)-100 mg tablets,dose pack See Rx Instructions PO .COMPLEX Qty: 30 0RF Rx Instructions: take TWO 150 mg tablets of nirmatrelvir with ONE 100 mg tablet of ritonavir twice daily for 5 days PO aspirin 81 mg tablet 81 mg PO DAILY cholecalciferol (vitamin D3) 1,000 unit (25 mcg) tablet 1,000 units PO DAILY ibuprofen [Advil] 200 mg tablet 600 mg PO QID PRN (Reason: fever or pain) Qty: 30 0RF Referrals Referrals: Diamond Silver MD [Physician] -
[2023-02-17] MEDS ORDERED: OPTIRAY 320 500ml IV ONE (11:12)
--- NOTE | 2023-02-17 11:26 | CT Scan Report ---
HEAD CT NONCONTRAST CT DOSE: 1264.25 mGy.cm HISTORY: Confusion. neuro deficit, acute stroke suspected TECHNIQUE: Multiaxial CT images of the head were performed without the use of intravenous contrast. A utomated exposure control was utilized for this study. A dose lowering technique was utilized adheri ng to the principles of ALARA. Comparison: None. Findings: The paranasal sinuses and mastoid air cells are clear. The calvarium and skull base are int act. There is no mass, hematoma, midline shift, acute infarct. White matter hypodensity is nonspecifi c but suggestive of microvascular ischemic change. The ventricles and sulci demonstrate mild age-rela katt involutional changes. 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 There is an old lacunar infarc t within the left basal ganglia. Impression: 1. No acute intracranial abnormality. 2. Old infarcts as described above. ACT 112: Negative or not required by law. Electronically signed by: Manuel Holbrook M.D. 02/17/2023 11:25 AM
--- NOTE | 2023-02-17 11:33 | CT Scan Report ---
HEAD & NECK CTA HISTORY: Confusion. neuro deficit, acute stroke suspected TECHNIQUE: Multiaxial CT images of the head were performed following the intravenous administration o f contrast to evaluate the major cerebral vessels. Multiaxial CT images of the neck were also perform ed following the intravenous administration of contrast to evaluate the major cervical vessels. Maxim um intensity projection images were also obtained. A dose lowering technique was utilized adhering to the principles of ALARA. COMPARISON: Noncontrast head CT 02/17/2023. FINDINGS: There is no mass, hematoma, midline shift, or acute infarct. Visualized intracranial internal carotid arteries, distal vertebral arteries, and basilar artery are widely patent. There is no significant s tenosis, occlusion, or aneurysm seen within the bilateral ACAs, MCAs, or signal inspector. An old left parietal l obe infarct again noted. Moderate calcified plaque within the bilateral carotid siphons. The major du ral venous sinuses appear patent. The aortic arch and proximal great vessels are widely patent. There is no significant stenosis, occ lusion, or dissection identified within the right common carotid, right internal carotid, or vertebra l arteries. Moderate calcified plaque within the left carotid bifurcation resulting in up to 40% foca l stenosis. Otherwise, the remaining left common and internal carotid arteries are widely patent. IMPRESSION: 1. No significant stenosis, occlusion, or aneurysm within the [place]. 2. Approximately 40% focal stenosis within the left carotid bifurcation due to the moderate calcified plaque. 3. The right carotid arteries and bilateral vertebral arteries are widely patent. ACT 112: Negative or not required by law. Electronically signed by: Manuel Holbrook M.D. 02/17/2023 11:32 AM
--- NOTE | 2023-02-17 11:33 | CT Scan Report ---
HEAD & NECK CTA HISTORY: Confusion. neuro deficit, acute stroke suspected TECHNIQUE: Multiaxial CT images of the head were performed following the intravenous administration o f contrast to evaluate the major cerebral vessels. Multiaxial CT images of the neck were also perform ed following the intravenous administration of contrast to evaluate the major cervical vessels. Maxim um intensity projection images were also obtained. A dose lowering technique was utilized adhering to the principles of ALARA. COMPARISON: Noncontrast head CT 02/17/2023. FINDINGS: There is no mass, hematoma, midline shift, or acute infarct. Visualized intracranial internal carotid arteries, distal vertebral arteries, and basilar artery are widely patent. There is no significant s tenosis, occlusion, or aneurysm seen within the bilateral ACAs, MCAs, or industrial locomotive operator. An old left parietal l obe infarct again noted. Moderate calcified plaque within the bilateral carotid siphons. The major du ral venous sinuses appear patent. The aortic arch and proximal great vessels are widely patent. There is no significant stenosis, occ lusion, or dissection identified within the right common carotid, right internal carotid, or vertebra l arteries. Moderate calcified plaque within the left carotid bifurcation resulting in up to 40% foca l stenosis. Otherwise, the remaining left common and internal carotid arteries are widely patent. IMPRESSION: 1. No significant stenosis, occlusion, or aneurysm within the [place]. 2. Approximately 40% focal stenosis within the left carotid bifurcation due to the moderate calcified plaque. 3. The right carotid arteries and bilateral vertebral arteries are widely patent. ACT 112: Negative or not required by law. Electronically signed by: Manuel Holbrook M.D. 02/17/2023 11:32 AM
--- NOTE | 2023-02-17 11:34 | XRay Report ---
XR chest 1V portable HISTORY: Confusion. neuro deficit, acute stroke suspected COMPARISON: Chest 10/26/2013. FINDINGS: No pneumothorax. No pleural effusions. The correct silhouette remains enlarged. There is mi ld diffuse interstitial thickening, unchanged. This is likely chronic. No new focal lung consolidatio ns to suggest a pneumonia. No evidence for pulmonary edema. A few bibasilar linear densities favor jade bsegmental atelectasis. IMPRESSION: Cardiomegaly and mild chronic interstitial thickening again noted. Otherwise, no acute process within the chest. ACT 112: Negative or not required by law. Electronically signed by: Manuel Holbrook M.D. 02/17/2023 11:33 AM
[2023-02-17 11:37] LABS: iSTAT Creatinine 0.8 mg/dl (0.6-1.3); iSTAT Hemoglobin 12.9 g/dl (14.0-18.0); iSTAT Ionized Calcium 1.21 mmol/l (1.12-1.32); iSTAT Potassium 3.6 mmol/L (3.3-5.0)
[2023-02-17 11:39] LABS: Basophils # (auto) 0.03 K/uL (0-0.2); Basophils % (auto) 0.5 %; Eosinophils # (auto) 0.09 K/uL (0-0.50); Eosinophils % (auto) 1.4 %; Hematocrit (blood only) 38.6 % (42.0-52.0); Hemoglobin 12.7 g/dl (14.0-18.0); Immature Granulocytes # (auto) 0.02 K/uL (0.01-0.20); Immature Granulocytes % (auto) 0.3 %; Lymphocytes # (auto) 1.27 K/uL (1.2-3.4); Lymphocytes % (auto) 20.3 %; Mean Corpuscular Hemoglobin 30.8 pg (25.0-34.0); Mean Corpuscular Hgb Conc 32.9 g/dL (32.0-36.0); Mean Corpuscular Volume 93.5 fL (80.0-100.0); Mean Platelet Volume 10.2 fL (9.4-12.4); Monocytes # (auto) 0.36 K/uL (0.11-0.59); Monocytes % (auto) 5.8 %; Neutrophils # (auto) 4.48 K/uL (1.40-6.50); Neutrophils % (auto) 71.7 %; Platelet Count 189 K/uL (130-400); RDW Standard Deviation 44.6 fL (36.4-46.3); Red Blood Count 4.13 M/uL (4.70-6.10); White Blood Count 6.25 K/ul (4.8-10.8)
[2023-02-17] MEDS ORDERED: LORazepam 2 MG/1 ML VIAL IV STA ×3 (11:43→16:15)
[2023-02-17] MEDS ORDERED: LORazepam 2 MG/1 ML VIAL ONE (11:45)
[2023-02-17 11:52] LABS: Partial Thromboplastin Ratio 0.9; Partial Thromboplastin Time 23.9 Seconds (21.0-31.0); Prothrombin Time 10.9 Seconds (9.0-12.0)
[2023-02-17] MEDS ORDERED: FOSPHENYTOIN 1,000 MGPE in SODIUM CHLORIDE 0.9% 50 ML IV STA (11:57)
[2023-02-17 12:08] LABS: Albumin Level 3.7 gm/dl (3.4-5.0); Bilirubin,Total 0.6 mg/dl (0.2-1.0); Calcium 8.6 mg/dl (8.6-10.3); Magnesium 1.8 mg/dl (1.7-2.4); Potassium 3.6 mmol/L (3.5-5.1)
[2023-02-17 12:14] LABS: Albumin Globulin Ratio 1.3 (0.9-2); BUN Creatinine Ratio 22.6 (10-20); Creatinine Clr Calc Pharmacy 74.1 ml/min; Est GFR (African American) 97.2 ml/min; Est GFR (Non-African American) 83.9 ml/min; Globulin 2.8 gm/dl (2.5-4.0); Total Protein 6.5 gm/dl (6.0-8.3)
[2023-02-17 12:18] LABS: Influenza A virus by PCR Negative (Neg); Influenza B virus by PCR Negative (Neg); RSV by PCR Negative (Neg)
[2023-02-17 12:20] LABS: Troponin I High Sensitivity 5.9 pg/ml (0-20)
--- NOTE | 2023-02-17 12:37 | History & Physical Report ---
Date of Service February 17, 2023 Assessment & Plan (1) AMS (altered mental status): Plan: Patient does not have a history of seizure. No family history of seizures. Does have family history of strokes. He does have a history of prostate cancer being treated with leuprolide, Zytiga, and prednisone 5mg daily with R hip metastasis. No known other sites of mets. AMS, ?New onset seizure versus stroke Case was reviewed by [facility] [place]. Thrombolytic not indicated based on duration of symptoms. DDx included seizure treatment. tx 1.5mg ativan, phosphenytoin, and keppra given. Clinically improved following, gaze deviation resolved. EEG, MRI recommended; did not recommended transfer. Lactate wnl, no leukocytosis, creatinine 0.84 on admission -Keppra twice daily continued - CThead: No acute intracranial abnormality, old left parietal infarct, old lacunar left basal ganglia infarct, microvascular ischemic changes suspected - CTAhead/neck: 40% focal stenosis of left carotid bifurcation with moderate plaque, right carotid arteries and bilateral vertebral arteries widely patent, no significant stenosis/occlusion/aneurysm within the [place] MRI with and without contrast given history of cancer and seizure protocol ordered EEG pending Neurology consulted. Discussed prior to admission, given that stroke is not ruled out recommended giving rectal aspirin which was ordered and starting on DVT prophylaxis. Did discuss risk of bleeding and hemorrhagic conversion with at bedside with aspirin and DVT prophylaxis, agreeable to both treatments at this time. We will allow for permissive hypertension goal 220/110 until MRI returns. If no acute stroke, treat BP to goal of under 180 systolic - ASA suppository given. Pt no longer taken aspirin at home DICTAPHONE TYPIST. History of prostate cancer with metastasis to hip Patient undergoing deprivation therapy, is on Abiraterone, Lupron, and prednisone. 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 DDx includes seizure provoked by brain metastasis, although general risk prostate metastasis to brain rare, MRI with contrast pending - no acute change in management at this time Hypertension Oral antihypertensive held while n.p.o., may resume lisinopril when tolerating p.o. Patient's assumes he would have taken medications this morning, but is unclear if patient did or did not Temporary permissive hypertension as noted, may trial low-dose of labetalol if needed. Defer hydralazine due to risk of precipitous drop HLD -Statin switched to atorvastatin 40mg, lipid panel pending. CODE STATUS: DNR/DNI, but would want intubation for airway protection/stabilization if indicated outside of code setting Diet: N.p.o. 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 Last known well was 6:50 AM when seen by . Was found incoherent and intermittently responsive to and with difficulty to arouse, and had left- sided weakness and left gaze deviation. Diaphoretic on EMS arrival and incontinent of stool. At ER assessment he is nonverbal with left gaze deviation. At time of bedside assessment patient is sedated following lorazepam, fosphenytoin, and Keppra dosing. His gaze deviation improved following these. Pt does not arouse or answer questions, but is guarding his airway and does not withdraw to thumb pinch bilaterally. Collateral is collected from his at bedside. Patient does not have a history of seizure. No family history of seizures. Does have family history of strokes. He does have a history of prostate cancer being treated with leuprolide, Zytiga, and prednisone 5mg daily with R hip metastasis. No known other sites of mets.Tongue lacerations are not appreciated. He does not use any medical or recreational marijuana. Patient follows with Dr. Vargas Urology and Dr. Berg Oncology at [facility]. He used to be on aspirin for primary prevention, however was previously stopped as an outpatient as he was using it for primary prevention and had pancreatic cyst evaluation performed during which it was held periprocedurally and then not restarted on discussion with his PCP. Medical History: Reviewed Medications: Reviewed Surgical History: Reviewed Family history: Reviewed Allergies: Reviewed Social History: Nonsmoker, social ETOH use. Code Status: DNR/DNI. Okay with intubation for airway protection outside of code setting Allergies Allergy/AdvReac Type Severity Reaction Status Date / Time POISON SUDHEER Allergy Unknown IRRITATION Uncoded 09/16/22 08:54 Home Medications Medication Instructions Recorded Confirmed Type aspirin 81 mg tablet 81 mg PO DAILY 07/08/19 09/16/22 History cholecalciferol (vitamin D3) 25 1,000 units PO DAILY 07/08/19 09/16/22 History mcg (1,000 unit) tablet ibuprofen 200 mg tablet (Advil) 600 mg PO QID PRN fever or pain 04/22/21 09/16/22 Rx #30 tabs lisinopril 10 mg tablet 10 mg PO HS #90 tabs 07/01/22 09/16/22 Rx simvastatin 20 mg tablet 20 mg PO HS #90 tabs 07/01/22 09/16/22 Rx abiraterone 500 mg tablet 1,000 mg PO DAILY 09/16/22 History adjuvant AS01B (PF)vial 1 of 2 0.5 ml IM ONCE #0.5 mL 09/16/22 09/16/22 Rx (Shingrix Adjuvant Component (PF) intramuscular suspension) leuprolide acetate (6 month) 45 mg 45 mg IM Q24W #1 ea 09/16/22 09/16/22 Rx intramuscular syringe kit (Lupron Depot) ciprofloxacin HCl 500 mg tablet 500 mg PO BID 5 days #10 tabs 10/20/22 Rx nirmatrelvir 300 mg (150 mg See Rx Instructions PO .COMPLEX 11/25/22 11/25/22 Rx x2)-ritonavir 100 mg tablet,dose #30 ea pack(EUA) (Paxlovid) Past Med/Surg History Medical History Hypercholesterolemia Hypertension Prostate cancer Surgical History History of appendectomy History of colonoscopy (02/12/18) History of hernia surgery History of orchiectomy History of prostatectomy Family History Mother Breast cancer Stroke Hypertension Grandfather (Maternal) Myocardial infarction Brother Arthritis Father Renal failure Coronary heart disease Denies family history of Ovarian cancer Prostate cancer Colorectal cancer Social History Smoking Status: Never smoker Second Hand Exposure: No; Hx Alcohol Use: Yes Alcohol type: beer and wine Alcohol Intake Frequency: 2-3 x/Week Alcohol Intake Frequency Comment: occasionally Hx Substance Use: No Preferred Language: Chinese Communication Ability: Effective Visual Impairment: No Limitations Hearing Ability: Hard of Hearing Anode Builder Required: No Beliefs That Will Affect Care: None marital status: Current Living Situation: Spouse current occupational status: retired current occupation: retired from career in construction Feels Safe at Home: Yes Childhood Exposure to Second-Hand Smoke: No Dental Care, Regularly: Yes Physical Activity Frequency: Daily Seatbelt Use: always Sunscreen Use: No (wears a hat ) Assistive Devices: Glasses Review of Systems Review of Systems: Unobtainable due to cognitive status Physical Exam Physical Exam: General: Sedated, guarding airway, does not arouse to answer questions or follow commands. HEENT: Atraumatic, normocephalic. Pupils reactive to light. Gaze midline. Unable to test vision/EOM due to patient's sedation. No facial asymmetry. Pulm: CTAB A&P. -wheezes, -rales, -rhonchi. Symmetrical chest rise. No increased work of breathing. No respiratory distress. Cardiac: RRR, -mrg. Radial pulses intact and symmetrical. Abdominal: Nontender, nondistended, soft. BS present. Extremities: Warm, dry. Sedate, does not withdraw to thumb pinch bilaterally. Radial pulse intact bilaterally. Strength and sensation limited by cognitive status. PT pulses intact bilaterally. Results & Data Results & Data Vital Signs (Past 12 Hours) Vital Signs Pulse Resp BP Pulse Ox O2 Del Method O2 Flow Rate 02/17/23 12:05 77 17 95 02/17/23 12:00 76 20 95 02/17/23 11:59 175/99 H 02/17/23 11:59 79 23 94 02/17/23 11:55 78 24 96 02/17/23 11:50 79 20 94 02/17/23 11:49 80 23 95 Nasal Cannula 4 02/17/23 10:49 89 16 159/99 H 96 Nasal Cannula PG Care Time/CCT Total # of Minutes Spent Total Time Spent with Patient: Total time spent is greater than 50% in coordination of care (as documented) at patient's floor/unit and/or counseling patient: Coding Level of Care Code 22127 INT INP/OBS CARE 3/75MIN Diagnoses AMS (altered mental status) R41.82 Prostate cancer metastatic to bone C61; C79.51 Hypercholesteremia E78.00
[2023-02-17 12:55] LABS: Appearance Urine Clear (Clear); Bilirubin Urine Negative (Negative); Blood Urine Negative (Negative); Color Urine Yellow; Glucose Urine UA Trace (Negative); Ketones Urine Negative (Negative); Leukocyte Esterase Urine Negative (Negative); Nitrite Urine Negative (Negative); Protein Urine Negative (Negative); Specific Gravity Urine 1.036 (1.000-1.030); Urobilinogen Urine Negative (Negative); pH Urine 7.5 (4.5-7.5)
[2023-02-17] MEDS ORDERED: ASPIRIN 300 MG SUPP PR ONE (13:24)
[2023-02-17] MEDS ORDERED: LABETALOL HCL IV 5 MG/ML 20ML IV PRN (13:37)
[2023-02-17] MEDS ORDERED: LORazepam 2 MG/1 ML VIAL IV PRN (13:39)
[2023-02-17 14:12] LABS: SARS CoV2 RNA(COVID-19) Ceph POSITIVE (Negative)
--- NOTE | 2023-02-17 14:54 | Electrocardiogram Report ---
Test Reason : Blood Pressure : / mmHG Vent. Rate : 086 BPM Atrial Rate : 086 BPM P-R Int : 174 ms QRS Dur : 092 ms QT Int : 420 ms P-R-T Axes : 050 010 023 degrees QTc Int : 502 ms Poor data quality, interpretation may be adversely affected Normal sinus rhythm Lateral infarct , age undetermined Abnormal ECG When compared with ECG of 23-OCT-2013 17:41, No significant change was found Confirmed by Gustabo Culp ([id number]) on 02/17/2023 2:53:47 PM Referred By: Confirmed By:Gustabo Culp
--- NOTE | 2023-02-17 15:59 | XCELERA ---
[id number]
[2023-02-17] MEDS ORDERED: PHARMACIST DISCHARGE MED REC CONSULT PRN (16:27)
[2023-02-17] MEDS ORDERED: GADOBUTROL 65ML VIAL IV ONE (17:15)
--- NOTE | 2023-02-17 17:24 | Magnetic Resonance Report ---
Brain MRI WITH AND WITHOUT CONTRAST HISTORY: Left-sided weakness. Altered mental status. Possible seizure. ?seizure vs CVA. hx prostate ca TECHNIQUE: Multiplanar multisequence MRI of the brain was performed both before and after the intrave nous administration of contrast. COMPARISON STUDY: Head CT 02/17/2023. FINDINGS: There is no mass, hematoma, midline shift, or acute infarct. The paranasal sinuses are german r. The mastoid air cells are clear. The ventricles and sulci demonstrate mild age-related involutiona l changes. Scattered foci of T2 hyperintensity seen within the periventricular and subcortical white matter are nonspecific but suggestive of mild microvascular ischemic changes. The major vascular flow voids at the skull base are well-maintained. Old small infarct within the left parietal lobe and an old lacunar infarct within the left basal ganglia again noted. The temporal lobes are symmetric. Ther e is motion artifact. No abnormal enhancement. IMPRESSION: 1. Motion artifact. No definite acute infarct or intracranial hemorrhage. 2. Old left-sided infarcts again noted. ACT 112: Negative or not required by law. Electronically signed by: Manuel Holbrook M.D. 02/17/2023 5:23 PM
--- NOTE | 2023-02-17 18:00 | Neurology Consultation ---
Date of Consultation February 17, 2023 Assessment & Plan (1) AMS (altered mental status): Impression: The patient was found in altered mental state. 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 Initial imaging studies did not reveal evidence of acute cerebrovascular accident. The patient has no history of seizures and seizure disorder. However, he has been on Lupron for prostate cancer, which can cause spontaneous seizures. The patient was loaded with Keppra and phenytoin as well as given Ativan, and has stayed seizure-free. Recommendations/plan: We will keep the patient on Keppra 500 mg twice a day for now. Further dose titration as needed. EEG to evaluate for epileptogenic activity. Seizure precautions. The patient should not drive motor vehicles for at least 6 months. Ativan 1 mg IV, as needed seizures, lasting longer than 3 minutes. N.p.o. until speech pathology clearance. We will follow patient with you. (2) Prostate cancer metastatic to bone: Impression: The patient has been treated for prostate cancer, which has metastases to hip. Current brain MRI did not show metastases to brain or skull. The patient has been treated on Lupron as well as abiraterone. Plan As seen above. Thank you for the consultation. History of Present Illness Reason for Consultation: AMS, left sided weakness, possible seizures Requesting Physician: Juancarlos Man MD Attending Physician: Juancarlos Man MD History of Present Illness The patient is 78-year-old gentleman, who was brought to emergency department by EMS, because of mental status change, gaze deviation and left-sided weakness. According to , the patient was last known well around 6:50 AM. His left home and when he came back around 3 hours later, the patient was slumped over, and was poorly responsive. He was able to answer some of the questions briefly, but he was not acting right. He was able to walk short distance, but then he slumped over again. In emergency department, they noticed that the patient was having a left gaze preference, with left-sided weakness, which was suggestive of seizure. There was no tongue biting or urinary incontinence. After discussing the case with telestroke neurologist, the patient was given 3 mg of Ativan, 2000 mg of Keppra and additionally phenytoin. He became very somnolent and lethargic. Head CT showed old ischemic strokes and CT angiogram of head and neck did not show hemodynamically significant stenosis. The patient was given aspirin suppository, kept n.p.o., and IV normal saline was also initiated based on possibility of cerebrovascular accident. His mental status has been improving gradually during last few hours. His gaze deviation and left-sided weakness has been improved as well. He is just back from brain MRI. Initial report does not suggest acute intracranial pathology including cerebrovascular accident, or metastatic lesions. Old cerebrovascular accidents were also reported. The patient's mental status not back to his baseline yet. However, he has no focal deficit at this time, and he is more responsive. The patient has no history of cerebrovascular accident or seizures. However, he has been treated for prostate cancer with metastases to hip. And the patient has been on Prednisone, Lupron and abiraterone for prostate cancer. I have reviewed the patient's chart including imaging studies and visualized them personally. I have discussed the case with hospitalist physician. I have answered family's questions in detail. Allergies Allergy/AdvReac Type Severity Reaction Status Date / Time POISON SUDHEER Allergy Unknown IRRITATION Uncoded 02/17/23 15:20 Home Medications Medication Instructions Recorded Confirmed Type cholecalciferol (vitamin D3) 25 1,000 units PO DAILY 07/08/19 02/17/23 History mcg (1,000 unit) tablet ibuprofen 200 mg tablet (Advil) 600 mg PO QID PRN fever or pain 04/22/21 02/17/23 Rx #30 tabs lisinopril 10 mg tablet 10 mg PO HS #90 tabs 07/01/22 02/17/23 Rx simvastatin 20 mg tablet 20 mg PO HS #90 tabs 07/01/22 02/17/23 Rx abiraterone 500 mg tablet 1,000 mg PO DAILY 09/16/22 02/17/23 History leuprolide acetate (6 month) 45 mg 0 mg IM Q24W 02/17/23 02/17/23 History intramuscular syringe kit (Lupron Depot) prednisone 5 mg tablet 5 mg PO DAILY 02/17/23 02/17/23 History Patient History Medical History Hypercholesterolemia Hypertension Prostate cancer 2012...PROSTATECTOMY, RADIATION THERAPY & 2 YRS OF LUPRON THERAPY Surgical History History of appendectomy History of colonoscopy (02/12/18) Dr. Fletcher, 2 adenomatous polyps removed (4-5 mm), based on age, no repeat screening colonoscopy required History of hernia surgery History of orchiectomy LEFT History of prostatectomy Family History Mother Breast cancer Stroke Hypertension Grandfather (Maternal) Myocardial infarction Brother Arthritis Father Renal failure Coronary heart disease Denies family history of Ovarian cancer Prostate cancer Colorectal cancer Social History Smoking Status: Never smoker Second Hand Exposure: No; Hx Alcohol Use: Yes Alcohol type: beer and wine Alcohol Intake Frequency: 2-3 x/Week Alcohol Intake Frequency Comment: occasionally Hx Substance Use: No Preferred Language: Bahamian Communication Ability: Effective Visual Impairment: No Limitations Hearing Ability: Hard of Hearing Epic Application Coordinator Required: No Beliefs That Will Affect Care: None marital status: Current Living Situation: Spouse current occupational status: retired current occupation: retired from career in [employer] Feels Safe at Home: Yes Childhood Exposure to Second-Hand Smoke: No Dental Care, Regularly: Yes Physical Activity Frequency: Daily Seatbelt Use: always Sunscreen Use: No (wears a hat ) Assistive Devices: Glasses Review of Systems Review of Systems: All systems reviewed & are unremarkable except as noted in HPI & below Physical Exam Physical Exam: General Examination: Constitutional: Well developed person in no acute distress. HENT: Normal exam with inspection. CV: Hearth rhythm is regular. Neck: Supple, no carotid bruits. Lungs: Non-labored and comfortable breathing. Abdomen: Soft, non-tender, non-distended. Skin: No rash or ecchymosis. Extremities: No edema or cyanosis NEUROLOGICAL EXAMINATION: Mental Status: Somnolent but arousable. Oriented to person and place. Cranial Nerves: II-XII are intact. No nystagmus. Funduscopy: Unable to visualize Motor: Cooperation is poor, but overall, there is good strength in all extremities, without asymmetry. Tone: Normal without spasticity or rigidity. Sensory: There is no obvious asymmetry. Limited exam. Coordination: Unable to assess. Speech: Limited verbal output which is fluent. Comprehension is intact. Gait: Not assessed. Musculoskeletal: Normal muscle bulk, no atrophy. Results & Data Vital Signs (Past 12 Hours) Vital Signs Pulse Pulse Resp BP BP Pulse Ox O2 Del Method 02/17/23 14:55 84 18 128/76 97 Nasal Cannula 02/17/23 14:10 75 95 02/17/23 14:05 77 95 02/17/23 14:00 74 19 97 02/17/23 14:00 149/79 H 02/17/23 13:55 75 21 98 02/17/23 13:50 75 21 96 02/17/23 13:45 74 18 95 02/17/23 13:40 75 16 95 02/17/23 13:35 77 24 95 02/17/23 13:30 79 20 94 02/17/23 13:25 75 29 H 95 02/17/23 13:20 74 27 H 94 02/17/23 13:15 71 14 94 02/17/23 13:15 136/85 02/17/23 13:10 94 02/17/23 13:05 93 02/17/23 13:00 95 02/17/23 12:55 96 02/17/23 12:50 95 02/17/23 12:45 93 02/17/23 12:40 95 02/17/23 12:38 94 02/17/23 12:38 151/84 H 02/17/23 12:35 95 02/17/23 12:30 81 20 92 02/17/23 12:25 84 24 90 02/17/23 12:20 80 19 96 02/17/23 12:15 80 21 92 02/17/23 12:10 75 22 94 02/17/23 13:00 74 28 H 136/85 96 Nasal Cannula 02/17/23 12:05 77 17 95 02/17/23 12:00 76 20 95 02/17/23 11:59 175/99 H 02/17/23 11:59 79 23 94 02/17/23 11:55 78 24 96 02/17/23 11:50 79 20 94 02/17/23 11:49 80 23 95 Nasal Cannula 02/17/23 10:49 89 16 159/99 H 96 Nasal Cannula O2 Flow Rate 02/17/23 14:55 4 02/17/23 14:10 02/17/23 14:05 02/17/23 14:00 02/17/23 14:00 02/17/23 13:55 02/17/23 13:50 02/17/23 13:45 02/17/23 13:40 02/17/23 13:35 02/17/23 13:30 02/17/23 13:25 02/17/23 13:20 02/17/23 13:15 02/17/23 13:15 02/17/23 13:10 02/17/23 13:05 02/17/23 13:00 02/17/23 12:55 02/17/23 12:50 02/17/23 12:45 02/17/23 12:40 02/17/23 12:38 02/17/23 12:38 02/17/23 12:35 02/17/23 12:30 02/17/23 12:25 02/17/23 12:20 02/17/23 12:15 02/17/23 12:10 02/17/23 13:00 4 02/17/23 12:05 02/17/23 12:00 02/17/23 11:59 02/17/23 11:59 02/17/23 11:55 02/17/23 11:50 02/17/23 11:49 4 02/17/23 10:49 Laboratory Results Laboratory Results - last 24 hr 02/17/23 02/17/23 02/17/23 11:18 11:22 11:24 WBC 6.25 RBC 4.13 L Hgb 12.7 L POC Hgb Hct 38.6 L POC Hct MCV 93.5 MCH 30.8 MCHC 32.9 RDW Std Deviation 44.6 RDW Coeff of Dean 13.0 Plt Count 189 MPV 10.2 Immature Gran % (Auto) 0.3 Neut % (Auto) 71.7 Lymph % (Auto) 20.3 Collier % (Auto) 5.8 Eos % (Auto) 1.4 Baso % (Auto) 0.5 Neut # (Auto) 4.48 Lymph # (Auto) 1.27 Collier # (Auto) 0.36 Eos # (Auto) 0.09 Baso # (Auto) 0.03 Immature Gran # (Auto) 0.02 PT INR APTT PTT Ratio POC Sodium Sodium POC Potassium Potassium POC Chloride Chloride Carbon Dioxide POC Total CO2 Anion Gap POC Anion Gap POC BUN BUN Creatinine POC Creatinine Est Cr Clr Drug Dosing Est GFR ( Amer) Est GFR (Non-Af Amer) BUN/Creatinine Ratio Glucose POC Glucose 144 H POC Glucose (other) Lactate Calcium POC Ioniz Calcium Maddie Magnesium Total Bilirubin AST ALT Alkaline Phosphatase Troponin I High Sens Total Protein Albumin Globulin Albumin/Globulin Ratio Urine Color Urine Appearance Urine pH Ur Specific [place] Urine Protein Urine Glucose (UA) Urine Ketones Urine Blood Urine Nitrite Urine Bilirubin Urine Urobilinogen Ur Leukocyte Esterase SARS-CoV-2 (PCR) POSITIVE A* Influenza Type A (PCR) Negative Influenza Type B (PCR) Negative RSV (RT-PCR) Negative 02/17/23 02/17/23 02/17/23 11:24 11:24 11:24 WBC RBC Hgb POC Hgb Hct POC Hct MCV MCH MCHC RDW Std Deviation RDW Coeff of Dean Plt Count MPV Immature Gran % (Auto) Neut % (Auto) Lymph % (Auto) Collier % (Auto) Eos % (Auto) Baso % (Auto) Neut # (Auto) Lymph # (Auto) Collier # (Auto) Eos # (Auto) Baso # (Auto) Immature Gran # (Auto) PT 10.9 INR 1.0 APTT 23.9 PTT Ratio 0.9 POC Sodium Sodium 136 POC Potassium Potassium 3.6 POC Chloride Chloride 105 Carbon Dioxide 27 POC Total CO2 Anion Gap 4 POC Anion Gap POC BUN BUN 19 Creatinine 0.84 POC Creatinine Est Cr Clr Drug Dosing 74.1 Est GFR ( Amer) 97.2 Est GFR (Non-Af Amer) 83.9 BUN/Creatinine Ratio 22.6 H Glucose 152 H POC Glucose POC Glucose (other) Lactate 0.9 Calcium 8.6 POC Ioniz Calcium Maddie Magnesium 1.8 Total Bilirubin 0.6 AST 15 ALT 11 Alkaline Phosphatase 52 Troponin I High Sens 5.9 Total Protein 6.5 Albumin 3.7 Globulin 2.8 Albumin/Globulin Ratio 1.3 Urine Color Urine Appearance Urine pH Ur Specific [place] Urine Protein Urine Glucose (UA) Urine Ketones Urine Blood Urine Nitrite Urine Bilirubin Urine Urobilinogen Ur Leukocyte Esterase SARS-CoV-2 (PCR) Influenza Type A (PCR) Influenza Type B (PCR) RSV (RT-PCR) 02/17/23 02/17/23 11:24 12:35 WBC RBC Hgb POC Hgb 12.9 L Hct POC Hct 38 L MCV MCH MCHC RDW Std Deviation RDW Coeff of Dean Plt Count MPV Immature Gran % (Auto) Neut % (Auto) Lymph % (Auto) Collier % (Auto) Eos % (Auto) Baso % (Auto) Neut # (Auto) Lymph # (Auto) Collier # (Auto) Eos # (Auto) Baso # (Auto) Immature Gran # (Auto) PT INR APTT PTT Ratio POC Sodium 139 Sodium POC Potassium 3.6 Potassium POC Chloride 101 Chloride Carbon Dioxide POC Total CO2 25 Anion Gap POC Anion Gap 17.0 POC BUN 18 BUN Creatinine POC Creatinine 0.8 Est Cr Clr Drug Dosing Est GFR ( Amer) Est GFR (Non-Af Amer) BUN/Creatinine Ratio Glucose POC Glucose POC Glucose (other) 150 H Lactate Calcium POC Ioniz Calcium Maddie 1.21 Magnesium Total Bilirubin AST ALT Alkaline Phosphatase Troponin I High Sens Total Protein Albumin Globulin Albumin/Globulin Ratio Urine Color Yellow Urine Appearance Clear Urine pH 7.5 Ur Specific [place] 1.036 H Urine Protein Negative Urine Glucose (UA) Trace H Urine Ketones Negative Urine Blood Negative Urine Nitrite Negative Urine Bilirubin Negative Urine Urobilinogen Negative Ur Leukocyte Esterase Negative SARS-CoV-2 (PCR) Influenza Type A (PCR) Influenza Type B (PCR) RSV (RT-PCR) Diagnostic Findings Chest X-Ray 02/17/23 10:49 XR chest 1V portable HISTORY: Confusion. neuro deficit, acute stroke suspected COMPARISON: Chest 10/26/2013. FINDINGS: No pneumothorax. No pleural effusions. The correct silhouette remains enlarged. There is mild diffuse interstitial thickening, unchanged. This is likely chronic. No new focal lung consolidations to suggest a pneumonia. No evid ence for pulmonary edema. A few bibasilar linear densities favor subsegmental atelectasis. IMPRESSION: Cardiomegaly and mild chronic interstitial thickening again noted. Otherwise, no acute process within the chest. ACT 112: Negative or not required by law. Electronically signed by: Manuel Holbrook M.D. 02/17/2023 11:[address] 02/17/23 10:[address] DOSE: 1264.25 mGy.cm HISTORY: Confusion. neuro deficit, acute stroke suspected TECHNIQUE: Multiaxial CT images of the head were performed without the use of intravenous contrast. Automated exposure control was utilized for this study. A dose lowering technique was utilized adhering to the principles of ALARA. Comparison: None. Findings: The paranasal sinuses and mastoid air cells are clear. The calvarium and skull base are intact. There is no mass, hematoma, midline shift, acute infarct. White matter hypodensity is nonspecific but suggestive of microvascular ischemic change. The ventricles and sulci demonstrate mild age-related involutional changes. 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 There is an old lacunar infarct within the left basal ganglia. Impression: 1. No acute intracranial abnormality. 2. Old infarcts as described above. ACT 112: Negative or not required by law. Electronically signed by: Manuel Holbrook M.D. 02/17/2023 11:25 AM Head CTA 02/17/23 10:49 HEAD & NECK CTA HISTORY: Confusion. neuro deficit, acute stroke suspected TECHNIQUE: Multiaxial CT images of the head were performed following the intravenous administration of contrast to evaluate the major cerebral vessels. Multiaxial CT images of the neck were also performed following the intravenous administration of contrast to evaluate the major cervical vessels. Maximum intensity projection images were also obtained. A dose lowering technique was utilized adhering to the principles of ALARA. COMPARISON: Noncontrast head CT 02/17/2023. FINDINGS: There is no mass, hematoma, midline shift, or acute infarct. Visualized intracranial internal carotid arteries, distal vertebral arteries, and basilar artery are widely patent. There is no significant stenosis, occlusion, or aneurysm seen within the bilateral ACAs, MCAs, or program trainer. An old left parietal lobe infarct again noted. Moderate calcified plaque within the bilateral carotid siphons. The major dural venous sinuses appear patent. The aortic arch and proximal great vessels are widely patent. There is no significant stenosis, occlusion, or dissection identified within the right common carotid, right internal carotid, or vertebral arteries. Moderate calcified plaque within the left carotid bifurcation resulting in up to 40% focal stenosis. Otherwise, the remaining left common and internal carotid arteries are widely patent. IMPRESSION: 1. No significant stenosis, occlusion, or aneurysm within the nikolai of [place]. 2. Approximately 40% focal stenosis within the left carotid bifurcation due to the moderate calcified plaque. 3. The right carotid arteries and bilateral vertebral arteries are widely patent. ACT 112: Negative or not required by law. Electronically signed by: Manuel Holbrook M.D. 02/17/2023 11:32 AM Neck CTA 02/17/23 10:49 HEAD & NECK CTA HISTORY: Confusion. neuro deficit, acute stroke suspected TECHNIQUE: Multiaxial CT images of the head were performed following the intravenous administration of contrast to evaluate the major cerebral vessels. Multiaxial CT images of the neck were also performed following the intravenous administration of contrast to evaluate the major cervical vessels. Maximum intensity projection images were also obtained. A dose lowering technique was utilized adhering to the principles of ALARA. COMPARISON: Noncontrast head CT 02/17/2023. FINDINGS: There is no mass, hematoma, midline shift, or acute infarct. Visualized intracranial internal carotid arteries, distal vertebral arteries, and basilar artery are widely patent. There is no significant stenosis, occlusion, or aneurysm seen within the bilateral ACAs, MCAs, or program trainer. An old left parietal lobe infarct again noted. Moderate calcified plaque within the bilateral carotid siphons. The major dural venous sinuses appear patent. The aortic arch and proximal great vessels are widely patent. There is no significant stenosis, occlusion, or dissection identified within the right common carotid, right internal carotid, or vertebral arteries. Moderate calcified plaque within the left carotid bifurcation resulting in up to 40% focal stenosis. Otherwise, the remaining left common and internal carotid arteries are widely patent. IMPRESSION: 1. No significant stenosis, occlusion, or aneurysm within the nikolai of [place]. 2. Approximately 40% focal stenosis within the left carotid bifurcation due to the moderate calcified plaque. 3. The right carotid arteries and bilateral vertebral arteries are widely patent. ACT 112: Negative or not required by law. Electronically signed by: Manuel Holbrook M.D. 02/17/2023 11:32 AM Brain MRI 02/17/23 13:29 Brain MRI WITH AND WITHOUT CONTRAST HISTORY: Left-sided weakness. Altered mental status. Possible seizure. ?seizure vs CVA. hx prostate ca TECHNIQUE: Multiplanar multisequence MRI of the brain was performed both before and after the intravenous administration of contrast. COMPARISON STUDY: Head CT 02/17/2023. FINDINGS: There is no mass, hematoma, midline shift, or acute infarct. The paranasal sinuses are clear. The mastoid air cells are clear. The ventricles and sulci demonstrate mild age-related involutional changes. Scattered foci of T2 hyperintensity seen within the periventricular and subcortical white matter are nonspecific but suggestive of mild microvascular ischemic changes. The major vascular flow voids at the skull base are well-maintained. Old small infarct within the left parietal lobe and an old lacunar infarct within the left basal ganglia again noted. The temporal lobes are symmetric. There is motion artifact. No abnormal enhancement. IMPRESSION: 1. Motion artifact. No definite acute infarct or intracranial hemorrhage. 2. Old left-sided infarcts again noted. ACT 112: Negative or not required by law. Electronically signed by: Manuel Holbrook M.D. 02/17/2023 5:23 PM
[2023-02-17] MEDS: levETIRAcetam 500 MG in 0.9 % SODIUM CHLORIDE 100 ML IV SCH (21:48)
[2023-02-17] MEDS: ENOXAPARIN INJ 40 MG/0.4 ML SYR SQ SCH (21:48)
[2023-02-18 07:42] LABS: Basophils # (auto) 0.02 K/uL (0-0.2); Basophils % (auto) 0.3 %; Eosinophils # (auto) 0.02 K/uL (0-0.50); Eosinophils % (auto) 0.3 %; Hematocrit (blood only) 38.3 % (42.0-52.0); Hemoglobin 12.9 g/dl (14.0-18.0); Immature Granulocytes # (auto) 0.02 K/uL (0.01-0.20); Immature Granulocytes % (auto) 0.3 %; Lymphocytes % (auto) 10.4 %; Mean Corpuscular Hemoglobin 30.7 pg (25.0-34.0); Mean Corpuscular Hgb Conc 33.7 g/dL (32.0-36.0); Mean Corpuscular Volume 91.2 fL (80.0-100.0); Mean Platelet Volume 9.9 fL (9.4-12.4); Monocytes # (auto) 0.61 K/uL (0.11-0.59); Monocytes % (auto) 7.9 %; Neutrophils # (auto) 6.24 K/uL (1.40-6.50); Neutrophils % (auto) 80.8 %; Platelet Count 207 K/uL (130-400); RDW Coefficient of Variation 12.9 % (11.5-14.5); RDW Standard Deviation 42.8 fL (36.4-46.3); White Blood Count 7.71 K/ul (4.8-10.8)
[2023-02-18 08:04] LABS: BUN Creatinine Ratio 18.5 (10-20); Calcium 9.6 mg/dl (8.6-10.3); Chol HDL Ratio 2.5 (0-5); Creatinine Clr Calc Pharmacy 70.3 ml/min; Est GFR (African American) 98.7 ml/min; Est GFR (Non-African American) 85.1 ml/min
[2023-02-18 09:52] LABS: A calco-baum cmplx NotReported Not Detected (NotDetected); Bact fragilis Not Reported Not Detected (NotDetected); C auris Not Reported Not Detected (NotDetected); Calbicans Not Reported Not Detected (NotDetected); Candida glabrata Not Reported Not Detected (NotDetected); Candida krusei Not Reported Not Detected (NotDetected); Cneoformans/gatti Not Reported Not Detected (NotDetected); Cparapsilosis Not Reported Not Detected (NotDetected); Ctropicalis Not Reported Not Detected (NotDetected); E cloacae compx Not Reported Not Detected (NotDetected); Efaecalis Not Reported Not Detected (NotDetected); Efaecium Not Reported Not Detected (NotDetected); Enterobacterales Not Reported Not Detected (NotDetected); Escherichia coli Not Reported Not Detected (NotDetected); H influenzae Not Reported Not Detected (NotDetected); K aerogenes Not Reported Not Detected (NotDetected); Koxytoca Not Reported Not Detected (NotDetected); Kpneumoniae grp Not Reported Not Detected (NotDetected); Lmonocyt Not Reported Not Detected (NotDetected); N meningitidis Not Reported Not Detected (NotDetected); P aeruginosa Not Reported Not Detected (NotDetected); Proteus spp Not Reported Not Detected (NotDetected); Salmonella spp Not Reported Not Detected (NotDetected); Smarcescens Not Reported Not Detected (NotDetected); Staph lugdunensis Not Reported Not Detected (NotDetected); Staph spp. Not Reported DETECTED (NotDetected); Staphaureus Not Reported Not Detected (NotDetected); Staphepi Not Reported DETECTED (NotDetected); Staphylococcus spp. DETECTED (NotDetected); Stenmaltophilia Not Reported Not Detected (NotDetected); Strep agal(GrpB) Not Reported Not Detected (NotDetected); Strep pneum Not Reported Not Detected (NotDetected); Strep pyog (GrpA) Not Reported Not Detected (NotDetected); Strep spp Not Reported Not Detected (NotDetected); mecAC Resistant Gene Not Detected (NotDetected)
[2023-02-18 10:00] LABS: Staphylococcus epidermidis DETECTED (NotDetected)
[2023-02-18] MEDS: ATORVASTATIN 40 MG TAB PO SCH (10:03)
[2023-02-18] MEDS: levETIRAcetam 500 MG in 0.9 % SODIUM CHLORIDE 100 ML IV SCH ×2 (10:07→19:58)
[2023-02-18] MEDS ORDERED: VANCOMYCIN CONSULT ACTIVE PRN (10:09)
[2023-02-18] MEDS ORDERED: VANCOMYCIN HCL 1,750 MG in SODIUM CHLORIDE 0.9% 500 ML IV ONE (10:09)
[2023-02-18 10:27] LABS: Estimated Average Glucose 120 mg/dl; Hemoglobin A1C 5.8 % (4.5-5.6)
[2023-02-18] MEDS: ASPIRIN 81 MG ECTAB PO SCH (15:03)
--- NOTE | 2023-02-18 17:19 | Neurology Progress Note ---
Date of Service February 18, 2023 Assessment & Plan (1) AMS (altered mental status): Plan: Impression: The patient was found in altered mental state. There was also reported left-sided weakness with left gaze preference, which was highly suggestive of complex partial seizure, affecting right cerebrum. Initial imaging studies did not reveal evidence of acute cerebrovascular accident. The patient has no history of seizures and seizure disorder. However, he has been on Lupron for prostate cancer, which can cause seizures. The patient was loaded with Keppra and phenytoin as well as given Ativan, and has stayed seizure-free. Recommendations/plan: We will keep the patient on Keppra 500 mg twice a day for now. Further dose titration as needed. EEG to evaluate for epileptogenic activity. Seizure precautions. The patient should not drive motor vehicles for at least 6 months. Ativan 1 mg IV, as needed seizures, lasting longer than 3 minutes. We should inform the patient's hematology software specialist, regarding recent seizure activity, as Lupron might trigger seizures. We will follow patient with you. 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 Current brain MRI did not show metastases to brain or skull. The patient has been treated on Lupron as well as abiraterone. Plan As seen above. Admission and Anticipated Discharge Date Admission Date: February 17, 2023 Subjective The patient's mental status has been improved back to his baseline. He is now alert and oriented x3. He has not had any seizure or seizure-like activities. He was somewhat confused and restless overnight, which has been improved. He passed swallow evaluation and he ate his meal. He denies any headache, or focal neurological symptoms. His COVID-19 test came positive and he is in isolation. He denies any coughing or other typical symptoms of COVID-19 infection. Review of Systems Review of Systems: All systems reviewed & are unremarkable except as noted in Subjective Physical Exam 2 Physical Exam: General Examination: Constitutional: Well developed person in no acute distress. HENT: Normal exam with inspection. CV: Hearth rhythm is regular. Neck: Supple, no carotid bruits. Lungs: Non-labored and comfortable breathing. Abdomen: Soft, non-tender, non-distended. Skin: No rash or ecchymosis. Extremities: No edema or cyanosis NEUROLOGICAL EXAMINATION: Mental Status: Alert and oriented to place, person and time. Cranial Nerves: II-XII are intact. No nystagmus. Funduscopy: Unable to visualize Motor: 5 out of 5 in all extremities without asymmetry. Tone: Normal without spasticity or rigidity. Sensory: Essentially intact. Coordination: Normal with [id number] and [id number] testing. Speech: Speech fluent, comprehension is intact. Gait: Not assessed. Musculoskeletal: Normal muscle bulk, no atrophy. Results & Data Vital Signs (Past 12 Hours) Vital Signs Temp Pulse Pulse Resp BP Pulse Ox Pulse Ox 02/18/23 16:27 92 02/18/23 15:55 37.0 C 72 18 160/84 H 92 02/18/23 15:25 78 02/18/23 11:36 37.3 C 72 17 156/72 H 94 02/18/23 07:49 37.0 C 70 17 141/81 H 93 02/18/23 07:52 75 02/18/23 07:46 O2 Del Method O2 Del Method 02/18/23 16:27 Room Air 02/18/23 15:55 Room Air 02/18/23 15:25 02/18/23 11:36 Room Air 02/18/23 07:49 Room Air 02/18/23 07:52 02/18/23 07:46 Room Air Laboratory Results Laboratory Results - last 24 hr 02/17/23 02/18/23 02/18/23 11:24 07:20 07:20 WBC 7.71 RBC 4.20 L Hgb 12.9 L Hct 38.3 L MCV 91.2 MCH 30.7 MCHC 33.7 RDW Std Deviation 42.8 RDW Coeff of Dean 12.9 Plt Count 207 MPV 9.9 Immature Gran % (Auto) 0.3 Neut % (Auto) 80.8 Lymph % (Auto) 10.4 [place]ander % (Auto) 7.9 Eos % (Auto) 0.3 Baso % (Auto) 0.3 Neut # (Auto) 6.24 Lymph # (Auto) 0.80 L [place] # (Auto) 0.61 H Eos # (Auto) 0.02 Baso # (Auto) 0.02 Immature Gran # (Auto) 0.02 Sodium 139 Potassium 4.0 Chloride 106 Carbon Dioxide 28 Anion Gap 5 BUN 15 Creatinine 0.81 Est Cr Clr Drug Dosing 70.3 Est GFR ( Amer) 98.7 Est GFR (Non-Af Amer) 85.1 BUN/Creatinine Ratio 18.5 Glucose 107 H Estimat Average Glucose Hemoglobin A1c Calcium 9.6 Triglycerides 66 Cholesterol 166 LDL Cholesterol, Calc 86 VLDL Cholesterol, Calc 13 HDL Cholesterol 67 Cholesterol/HDL Ratio 2.5 Procalcitonin Staphylococcus sp PCR DETECTED A mecA/C-Methicil Resis Gene Not Detected Staph epidermidis (PCR) DETECTED A Bld Cult ID Panel PCR See PCR Comment 02/18/23 02/18/23 07:20 12:06 WBC RBC Hgb Hct MCV MCH MCHC RDW Std Deviation RDW Coeff of Dean Plt Count MPV Immature Gran % (Auto) Neut % (Auto) Lymph % (Auto) [place] % (Auto) Eos % (Auto) Baso % (Auto) Neut # (Auto) Lymph # (Auto) [place]ander # (Auto) Eos # (Auto) Baso # (Auto) Immature Gran # (Auto) Sodium Potassium Chloride Carbon Dioxide Anion Gap BUN Creatinine Est Cr Clr Drug Dosing Est GFR ( Amer) Est GFR (Non-Af Amer) BUN/Creatinine Ratio Glucose Estimat Average Glucose 120 Hemoglobin A1c 5.8 H Calcium Triglycerides Cholesterol LDL Cholesterol, Calc VLDL Cholesterol, Calc HDL Cholesterol Cholesterol/HDL Ratio Procalcitonin < 0.05 Staphylococcus sp PCR mecA/C-Methicil Resis Gene Staph epidermidis (PCR) Bld Cult ID Panel PCR Diagnostic Findings Chest X-Ray 02/17/23 10:49 XR chest 1V portable HISTORY: Confusion. neuro deficit, acute stroke suspected COMPARISON: Chest 10/26/2013. FINDINGS: No pneumothorax. No pleural effusions. The correct silhouette remains enlarged. There is mild diffuse interstitial thickening, unchanged. This is likely chronic. No new focal lung consolidations to suggest a pneumonia. No evidence for pulmonary edema. A few bibasilar linear densities favor subsegmental atelectasis. IMPRESSION: Cardiomegaly and mild chronic interstitial thickening again noted. Otherwise, no acute process within the chest. ACT 112: Negative or not required by law. Electronically signed by: Manuel Holbrook M.D. 02/17/2023 11:[address] 02/17/23 10:[address] DOSE: 1264.25 mGy.cm HISTORY: Confusion. neuro deficit, acute stroke suspected TECHNIQUE: Multiaxial CT images of the head were performed without the use of intravenous contrast. Automated exposure control was utilized for this study. A dose lowering technique was utilized adhering to the principles of ALARA. Comparison: None. Findings: The paranasal sinuses and mastoid air cells are clear. The calvarium and skull base are intact. There is no mass, hematoma, midline shift, acute infarct. White matter hypodensity is nonspecific but suggestive of microvascular ischemic change. The ventricles and sulci demonstrate mild age-related involutional changes. 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 There is an old lacunar infarct within the left basal ganglia. Impression: 1. No acute intracranial abnormality. 2. Old infarcts as described above. ACT 112: Negative or not required by law. Electronically signed by: Manuel Holbrook M.D. 02/17/2023 11:25 AM Head CTA 02/17/23 10:49 HEAD & NECK CTA HISTORY: Confusion. neuro deficit, acute stroke suspected TECHNIQUE: Multiaxial CT images of the head were performed following the intravenous administration of contrast to evaluate the major cerebral vessels. Multiaxial CT images of the neck were also performed following the intravenous administration of contrast to evaluate the major cervical vessels. Maximum intensity projection images were also obtained. A dose lowering technique was utilized adhering to the principles of ALARA. COMPARISON: Noncontrast head CT 02/17/2023. FINDINGS: There is no mass, hematoma, midline shift, or acute infarct. Visualized intracranial internal carotid arteries, distal vertebral arteries, and basilar artery are widely patent. There is no significant stenosis, occlusion, or aneurysm seen within the bilateral ACAs, MCAs, or recycle coordinator. An old left parietal lobe infarct again noted. Moderate calcified plaque within the bilateral carotid siphons. The major dural venous sinuses appear patent. The aortic arch and proximal great vessels are widely patent. There is no significant stenosis, occlusion, or dissection identified within the right common carotid, right internal carotid, or vertebral arteries. Moderate calcified plaque within the left carotid bifurcation resulting in up to 40% focal stenosis. Otherwise, the remaining left common and internal carotid arteries are widely patent. IMPRESSION: 1. No significant stenosis, occlusion, or aneurysm within the [place]. 2. Approximately 40% focal stenosis within the left carotid bifurcation due to the moderate calcified plaque. 3. The right carotid arteries and bilateral vertebral arteries are widely pa tent. ACT 112: Negative or not required by law. Electronically signed by: Manuel Holbrook M.D. 02/17/2023 11:32 AM Neck CTA 02/17/23 10:49 HEAD & NECK CTA HISTORY: Confusion. neuro deficit, acute stroke suspected TECHNIQUE: Multiaxial CT images of the head were performed following the intravenous administration of contrast to evaluate the major cerebral vessels. Multiaxial CT images of the neck were also performed following the intravenous administration of contrast to evaluate the major cervical vessels. Maximum intensity projection images were also obtained. A dose lowering technique was utilized adhering to the principles of ALARA. COMPARISON: Noncontrast head CT 02/17/2023. FINDINGS: There is no mass, hematoma, midline shift, or acute infarct. Visualized intracranial internal carotid arteries, distal vertebral arteries, and basilar artery are widely patent. There is no significant stenosis, occlusion, or aneurysm seen within the bilateral ACAs, MCAs, or recycle coordinator. An old left parietal lobe infarct again noted. Moderate calcified plaque within the bilateral carotid siphons. The major dural venous sinuses appear patent. The aortic arch and proximal great vessels are widely patent. There is no significant stenosis, occlusion, or dissection identified within the right common carotid, right internal carotid, or vertebral arteries. Moderate calcified plaque within the left carotid bifurcation resulting in up to 40% focal stenosis. Otherwise, the remaining left common and internal carotid arteries are widely patent. IMPRESSION: 1. No significant stenosis, occlusion, or aneurysm within the [place]. 2. Approximately 40% focal stenosis within the left carotid bifurcation due to the moderate calcified plaque. 3. The right carotid arteries and bilateral vertebral arteries are widely patent. ACT 112: Negative or not required by law. Electronically signed by: Manuel Holbrook M.D. 02/17/2023 11:32 AM Brain MRI 02/17/23 13:29 Brain MRI WITH AND WITHOUT CONTRAST HISTORY: Left-sided weakness. Altered mental status. Possible seizure. ?seizure vs CVA. hx prostate ca TECHNIQUE: Multiplanar multisequence MRI of the brain was performed both before and after the intravenous administration of contrast. COMPARISON STUDY: Head CT 02/17/2023. FINDINGS: There is no mass, hematoma, midline shift, or acute infarct. The paranasal sinuses are clear. The mastoid air cells are clear. The ventricles and sulci demonstrate mild age-related involutional changes. Scattered foci of T2 hyperintensity seen within the periventricular and subcortical white matter are nonspecific but suggestive of mild microvascular ischemic changes. The major vascular flow voids at the skull base are well-maintained. Old small infarct within the left parietal lobe and an old lacunar infarct within the left basal ganglia again noted. The temporal lobes are symmetric. There is motion artifact. No abnormal enhancement. IMPRESSION: 1. Motion artifact. No definite acute infarct or intracranial hemorrhage. 2. Old left-sided infarcts again noted. ACT 112: Negative or not required by law. Electronically signed by: Manuel Holbrook M.D. 02/17/2023 5:23 PM
--- NOTE | 2023-02-18 17:28 | Hospitalist Progress Note ---
Date of Service February 18, 2023 Assessment & Plan (1) AMS (altered mental status): Plan: Mr. Morales is a 78 yo M with a PMHx of prostate cancer metastatic to the bone who was admitted on 02/17/23 after being found altered at home by his . - As for etiology of AMS, this remains uncertain. Mentation seems to be improving - Acute stroke/brain metastasis ruled out with imaging (CT and MRI) -although old strokes were identified and this is the first time patient and are made aware of them. He was not given tPA on arrival. - Seizure suspected -- Lupron (a chronic part of his prostate cancer regimen, can cause spontaneous seizures). EEG has been ordered and will be done this coming week. Patient does not have a history of seizure. No family history of seizures. He was given 1.5mg ativan, phosphenytoin, and keppra. Seizure precautions -- he passed swallow eval and can now have diet ordered. Neurology has been consulted, appreciate recs. - metabolic origin unlikley as CBC and CMP were normal. Lactate not elevated. He did test + for covid 19-- however he was also positive in November 2022 (for which he did take paxlovid). One of 4 blood cultures are growing gram + cocci -- this has been discussed with pharmacy and felt to be a contaminant. Procal was checked and neg. Patient is afebrile and not tachycardic -- although he is on chronic low dose prednisone therapy --> it is unclear if this is suppressing his ability to mount immune response (ie such as a fever). Follow blood culture and add abx if another turns positive. History of prostate cancer with metastasis to hip Patient undergoing deprivation therapy, is on Abiraterone, Lupron, and prednisone. 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 - no acute change in management at this time Hypertension - continue home lisinopril HLD - Statin switched from simvastatin to atorvastatin 40mg on admission given finding of old infarcts - daily ASA added back into regimen (for what is now secondary ASCVD prevention) COVID 19 + - unclear if this is an acute infection or if he remains positive from 11/2022 infection - no obvious respiratory complaints or cold symptoms - covid precautions ordered - steroids not indicated since he is not hypoxic. He is a technically a candidate for remdesirvir --> however he seems to be totally asymptomatic at this time from the covid and I am going to hold off CODE STATUS: DNR/DNI, but would want intubation for airway protection/stabilization if indicated outside of code setting Diet: heart healthy Disposition: PCU. PT/OT ordered DVT prophylaxis: Lovenox Admission and Anticipated Discharge Date Admission Date: February 17, 2023 Subjective Very tired on exam today -- did most of the talking. She said in the days leading up to finding him altered, he had been in his usual state of health, no signs of illness. She does say she feels as though he has had a slight cognitive decline -- but this has been over a period of months rather than days. Prior to this hospitalization, neither patient nor his were aware he had (a history) occipital strokes (these were detected on brain MRI on admission). She expresses much concern over this covid test being positive. Review of Systems Review of Systems: All systems reviewed & are unremarkable except as noted in HPI & below Physical Exam Physical Exam: General Appearance: well-developed, well-nourished adult male in no acute distress. + sleepy but arousable HEENT: NC/AT. Sclera anicteric. CV: RRR. S1 and S2 appreciated. No murmurs, clicks, gallops or rubs. Lungs: CTA in all lung vera bilaterally with equal air movement. No wheezes, rales, rhonchi or crackles. Skin: warm, dry, and intact Neuro: AAO x 3. No focal deficits. Psych: Appropriate mood and affect. Results & Data Results & Data Vital Signs (Past 12 Hours) Vital Signs Temp Pulse Pulse Resp BP Pulse Ox Pulse Ox 02/18/23 16:27 92 02/18/23 15:55 37.0 C 72 18 160/84 H 92 02/18/23 15:25 78 02/18/23 11:36 37.3 C 72 17 156/72 H 94 02/18/23 07:49 37.0 C 70 17 141/81 H 93 02/18/23 07:52 75 02/18/23 07:46 O2 Del Method O2 Del Method 02/18/23 16:27 Room Air 02/18/23 15:55 Room Air 02/18/23 15:25 02/18/23 11:36 Room Air 02/18/23 07:49 Room Air 02/18/23 07:52 02/18/23 07:46 Room Air PG Care Time/CCT Total # of Minutes Spent Total Time Spent with Patient: Total time spent is greater than 50% in coordination of care (as documented) at patient's floor/unit and/or counseling patient: [place] [address] SUB INP/OBS CARE 2/35MIN Patient Type Established Diagnoses AMS (altered mental status) R41.82
[2023-02-18] MEDS: ENOXAPARIN INJ 40 MG/0.4 ML SYR SQ SCH (19:57)
[2023-02-18] MEDS: lisinopril 10 MG TAB PO SCH (19:57)
[2023-02-19 08:03] LABS: Basophils # (auto) 0.03 K/uL (0-0.2); Basophils % (auto) 0.4 %; Eosinophils # (auto) 0.02 K/uL (0-0.50); Eosinophils % (auto) 0.3 %; Hematocrit (blood only) 38.7 % (42.0-52.0); Hemoglobin 13.6 g/dl (14.0-18.0); Immature Granulocytes # (auto) 0.01 K/uL (0.01-0.20); Immature Granulocytes % (auto) 0.1 %; Lymphocytes % (auto) 14.7 %; Mean Corpuscular Hemoglobin 31.1 pg (25.0-34.0); Mean Corpuscular Hgb Conc 35.1 g/dL (32.0-36.0); Mean Corpuscular Volume 88.6 fL (80.0-100.0); Monocytes # (auto) 0.71 K/uL (0.11-0.59); Monocytes % (auto) 10.5 %; Neutrophils # (auto) 5.01 K/uL (1.40-6.50); Platelet Count 229 K/uL (130-400); RDW Coefficient of Variation 12.7 % (11.5-14.5); RDW Standard Deviation 41.5 fL (36.4-46.3); Red Blood Count 4.37 M/uL (4.70-6.10); White Blood Count 6.78 K/ul (4.8-10.8)
--- NOTE | 2023-02-19 08:40 | Hospitalist Progress Note ---
Date of Service February 19, 2023 Assessment & Plan (1) AMS (altered mental status): Plan: acute encephalopathy suspect seizure, moderate risk Initially some lateralizing signsCase was reviewed by [facility] tel[facility]roke. Thrombolytic not indicated. imaging with chronic CVA and microvascular changes, mri no mets no acute changes seizure treatment. tx 1.5mg ativan, phosphenytoin, and keppra given. Neurology feels clinically may have been seizure, possible influenced by luporon which is treating prostate CA EEG,recommended -Keppra twice daily continued recommended by neurology Aspirin recommended, continue statin for CAD/CVD risk factor modification, switched to high potency Covid 19 test positive, is on chronic prednisone, no pulmonary sx, pneumonia ruled out likely cause of encephalopathy Updated on COVID precautions at the bedside History of prostate cancer with metastasis to hip chronic stable with workup in progress Patient undergoing deprivation therapy, is on Abiraterone, Lupron, and prednisone. 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 Hypertension chronic stable but with need to alter treatment with npo status permissive hypertension CODE STATUS: DNR/DNI, but would want intubation for airway protection/stabilization if indicated outside of code setting one of 4 blood cultures shows coag neg staph, likely contaminant but will check urine given prostate ca DVT prophylaxis: Lovenox (2) Prostate cancer metastatic to bone: (3) Hypercholesteremia: Admission and Anticipated Discharge Date Admission Date: February 17, 2023 Subjective pt is still with visual hallucinations, sees yellow letters on the wall no other issues, occasional dry Non productive cough. is present at bedside Physical Exam Physical Exam: Pt is awake and oriented, alert no focal issues at the present cardiac exam is regular lungs are clear Results & Data Results & Data Vital Signs (Past 12 Hours) Vital Signs Temp Pulse Pulse Pulse Resp BP Pulse Ox 02/19/23 07:53 98.4 F 70 20 167/87 H 93 02/19/23 03:18 99.0 F 73 16 126/67 94 02/19/23 01:19 77 02/18/23 23:00 98.6 F 74 18 129/72 94 O2 Del Method 02/19/23 07:53 Room Air 02/19/23 03:18 Room Air 02/19/23 01:19 02/18/23 23:00 Room Air Laboratory Results Reviewed CBC PG Care Time/CCT Total # of Minutes Spent Total Time Spent with Patient: Total time spent is greater than 50% in coordination of care (as documented) at patient's floor/unit and/or counseling patient: Coding Level of Care Code 09262 SUB INP/OBS CARE 2/35MIN Diagnoses AMS (altered mental status) R41.82 Prostate cancer metastatic to bone C61; C79.51 Hypercholesteremia E78.00
[2023-02-19] MEDS: ASPIRIN 81 MG ECTAB PO SCH (08:47)
[2023-02-19] MEDS: ATORVASTATIN 40 MG TAB PO SCH (08:47)
[2023-02-19] MEDS: lisinopril 10 MG TAB PO SCH (08:47)
[2023-02-19] MEDS: levETIRAcetam 500 MG in 0.9 % SODIUM CHLORIDE 100 ML IV SCH ×2 (08:47→21:27)
[2023-02-19] MEDS: ENOXAPARIN INJ 40 MG/0.4 ML SYR SQ SCH (21:26)
[2023-02-20] MEDS: ASPIRIN 81 MG ECTAB PO SCH (09:26)
[2023-02-20] MEDS: ATORVASTATIN 40 MG TAB PO SCH (09:26)
[2023-02-20] MEDS: lisinopril 10 MG TAB PO SCH (09:26)
[2023-02-20] MEDS: levETIRAcetam 500 MG in 0.9 % SODIUM CHLORIDE 100 ML IV SCH (09:58)
--- NOTE | 2023-02-20 15:06 | Hospitalist Progress Note ---
Date of Service February 20, 2023 Assessment & Plan (1) AMS (altered mental status): Plan: acute encephalopathy suspect seizure, moderate risk Initially some lateralizing signsCase was reviewed by [facility] telestroke. Thrombolytic not indicated. imaging with chronic CVA and microvascular changes, mri no mets no acute changes seizure treatment. tx 1.5mg ativan, phosphenytoin, and keppra given. Neurology feels clinically may have been seizure, possible influenced by luporon which is treating prostate CA EEG,recommended, completed 02/20/23 pending -Keppra twice daily continued recommended by neurology Aspirin recommended, continue statin for CAD/CVD risk factor modification, switched to high potency Covid 19 test positive, is on chronic prednisone, no pulmonary sx, pneumonia ruled out likely cause of encephalopathy Updated on COVID precautions at the bedside History of prostate cancer with metastasis to hip chronic stable with workup in progress Patient undergoing deprivation therapy, is on Abiraterone, Lupron, and prednisone. 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 Hypertension chronic stable but with need to alter treatment with npo status permissive hypertension CODE STATUS: DNR/DNI, but would want intubation for airway protection/stabilization if indicated outside of code setting one of 4 blood cultures shows coag neg staph, likely contaminant but will check urine given prostate ca DVT prophylaxis: Lovenox (2) Prostate cancer metastatic to bone: (3) Hypercholesteremia: Admission and Anticipated Discharge Date Admission Date: February 17, 2023 Subjective pt is still with visual hallucinations, continues to see yellow letters on the wall, cannot read complete words no other issues, occasional dry Non productive cough. is present at bedside Physical Exam Physical Exam: Pt is awake and oriented, alert no focal issues at the present cardiac exam is regular lungs are clear neuro exam is non focal Results & Data Results & Data Vital Signs (Past 12 Hours) Vital Signs Temp Pulse Resp BP Pulse Ox O2 Del Method 02/20/23 12:01 98.2 F 86 18 136/92 92 Room Air 02/20/23 08:06 98.6 F 68 18 151/75 H 93 Room Air PG Care Time/CCT Total # of Minutes Spent Total Time Spent with Patient: Total time spent is greater than 50% in coordination of care (as documented) at patient's floor/unit and/or counseling patient: Coding Level of Care Code 53687 SUB INP/OBS CARE MIN Diagnoses AMS (altered mental status) R41.82 Prostate cancer metastatic to bone C61; C79.51 Hypercholesteremia E78.00
--- NOTE | 2023-02-20 15:15 | Electroencephalogram ---
EEG Procedure Note Date of Service February 20, 2023 Start / End Times Start Time: 08:42 End Time: 09:02 Referring Physician Zeke Hernandez MD History Seizure, stroke like symptoms. Home Medication List Medication Instructions Recorded Confirmed Type cholecalciferol (vitamin D3) 25 1,000 units PO DAILY 07/08/19 02/17/23 History mcg (1,000 unit) tablet ibuprofen 200 mg tablet (Advil) 600 mg PO QID PRN fever or pain 04/22/21 02/17/23 Rx #30 tabs lisinopril 10 mg tablet 10 mg PO HS #90 tabs 07/01/22 02/17/23 Rx simvastatin 20 mg tablet 20 mg PO HS #90 tabs 07/01/22 02/17/23 Rx abiraterone 500 mg tablet 1,000 mg PO DAILY 09/16/22 02/17/23 History leuprolide acetate (6 month) 45 mg 0 mg IM Q24W 02/17/23 02/17/23 History intramuscular syringe kit (Lupron Depot) prednisone 5 mg tablet 5 mg PO DAILY 02/17/23 02/17/23 History Inpatient Medication List Aspirin (Aspirin 81 Mg Ectab) 81 mg PO QAM [facility] Stop: 03/20/23 14:29 Last Admin: 02/20/23 09:26 Dose: 81 mg Documented By: Admin: 02/19/23 08:47 Dose: 81 mg Documented By: Admin: 02/18/23 15:03 Dose: 81 mg Documented By: GEE Atorvastatin Calcium (Atorvastatin 40 Mg Tab) 40 mg PO QAM [facility] Stop: 03/20/23 08:59 Last Admin: 02/20/23 09:26 Dose: 40 mg Documented By: Admin: 02/19/23 08:47 Dose: 40 mg Documented By: Admin: 02/18/23 10:03 Dose: Not Given Documented By: GEE Enoxaparin Sodium (Enoxaparin Inj 40 Mg/0.4 Ml Syr) 40 mg SQ Q24H [facility] Stop: 03/19/23 20:59 Last Admin: 02/19/23 21:26 Dose: 40 mg Documented By: Admin: 02/18/23 19:57 Dose: 40 mg Documented By: Admin: 02/17/23 21:48 Dose: 40 mg Documented By: BHARATHI Levetiracetam 500 mg/ Sodium (Chloride) 105 mls @ 440 mls/hr IV BID ZACH Stop: 03/19/23 20:59 Last Infusion: 02/20/23 10:22 Dose: 0 mls/hr Documented By: Admin: 02/20/23 09:58 Dose: 440 mls/hr Documented By: Infusion: 02/19/23 21:45 Dose: 0 mls/hr Documented By: Admin: 02/19/23 21:27 Dose: 440 mls/hr Documented By: Infusion: 02/19/23 09:12 Dose: 0 mls/hr Documented By: Admin: 02/19/23 08:47 Dose: 440 mls/hr Documented By: Infusion: 02/18/23 20:15 Dose: 0 mls/hr Documented By: Admin: 02/18/23 19:58 Dose: 440 mls/hr Documented By: Infusion: 02/18/23 10:43 Dose: 0 mls/hr Documented By: Admin: 02/18/23 10:07 Dose: 440 mls/hr Documented By: Infusion: 02/17/23 22:03 Dose: 0 mls/hr Documented By: Admin: 02/17/23 21:48 Dose: 440 mls/hr Documented By: BHARATHI Lisinopril (Lisinopril 10 Mg Tab) 10 mg PO QAM [facility] Stop: 03/20/23 17:39 Last Admin: 02/20/23 09:26 Dose: 10 mg Documented By: Admin: 02/19/23 08:47 Dose: 10 mg Documented By: Admin: 02/18/23 19:57 Dose: 10 mg Documented By: [place] Discontinued Medications Aspirin (Aspirin 300 Mg Supp) 300 mg ME ONE ONE Stop: 02/17/23 13:25 Last Admin: 02/17/23 14:33 Dose: 300 mg Documented By: JOHN PAUL Gadobutrol (Gadobutrol 65ml Vial) 8 ml IV ONCE ONE Stop: 02/17/23 17:16 Last Admin: 02/17/23 17:16 Dose: 8 ml Documented By: MAXIMUS Levetiracetam 2,000 mg/ Sodium (Chloride) 270 mls @ 999 mls/hr IV NOW STA Stop: 02/17/23 11:57 Last Infusion: 02/17/23 12:16 Dose: 0 mls/hr Documented By: JOHN PAUL Admin: 02/17/23 11:59 Dose: 999 mls/hr Documented By: JOHN PAUL Fosphenytoin Sodium 1,000 mgpe (/ Sodium Chloride) 70 mls @ 420 mls/hr IV NOW STA Stop: 02/17/23 12:06 Last Infusion: 02/17/23 12:23 Dose: 0 mls/hr Documented By: JOHN PAUL Admin: 02/17/23 12:12 Dose: 420 mls/hr Documented By: JOHN PAUL Ioversol (Optiray 320 500ml) 112 ml IV ONCE ONE Stop: 02/17/23 11:13 Last Admin: 02/17/23 11:13 Dose: 112 ml Documented By: HILARIO Lorazepam (Lorazepam 2 Mg/1 Ml Vial) 1 mg IV NOW STA Stop: 02/17/23 11:44 Last Admin: 02/17/23 11:51 Dose: 1 mg Documented By: JOHN PAUL Lorazepam (Lorazepam 2 Mg/1 Ml Vial) Confirm Administered Dose 2 mg .ROUTE .STK- MED ONE Stop: 02/17/23 11:46 Last Admin: 02/17/23 11:51 Dose: Not Given Documented By: JOHN PAUL Lorazepam (Lorazepam 2 Mg/1 Ml Vial) 0.5 mg IV NOW STA Stop: 02/17/23 11:58 Last Admin: 02/17/23 12:00 Dose: 0.5 mg Documented By: JOHN PAUL Lorazepam (Lorazepam 2 Mg/1 Ml Vial) 1 mg IV NOW STA Stop: 02/17/23 16:16 Last Admin: 02/17/23 16:07 Dose: 1 mg Documented By: MATY Description This is a 21 electrode EEG with a single channel dedicated to limited EKG. The electrodes were placed in accordance with the International 10-20 system. Interpretation During restful wakefulness, there is low amplitude, up to 9 Hz posterior alpha activity, attenuates with eye opening. Background activity shows good organization without focal slowing or asymmetry. Sleep pattern is not captured. Photic stimulations poorly induced posterior driving responses. Hyperventilation is not attempted. There are no electrographic seizures, epileptogenic discharges, or other abnormal activity during the study. Clinical Correlation Impression: This is a normal EEG, recorded in wakefulness only. There is no electrographic seizure or epileptogenic discharge. Normal routine EEG will not able to rule out seizure disorder definitively. If clinically indicated, a prolonged, and sleep deprived EEG recording might offer further information.
--- NOTE | 2023-02-20 16:53 | Neurology Progress Note ---
Date of Service February 20, 2023 Assessment & Plan (1) AMS (altered mental status): Plan: Impression: The patient was found in altered mental state. There was also reported left-sided weakness with left gaze preference, which was highly suggestive of complex partial seizure, affecting right cerebrum. Initial imaging studies did not reveal evidence of acute cerebrovascular accident. The patient has no history of seizures and seizure disorder. However, he has been on Lupron for prostate cancer, which can cause seizures. The patient has been kept on Keppra 500 mg twice a day and has stayed seizure-free. Recommendations/plan: We will keep the patient on Keppra 500 mg twice a day. The patient has a scheduled appointment with hematology systems specialist. He will discuss about recent seizure activity, as Lupron might trigger seizures. Seizure precautions are fully explained to patient. The patient should not drive motor vehicles until getting clearance from neurology clinic. The patient is neurologically stable and can be discharged home. Follow-up at neurology clinic in a month. I will contact with [facility] neurology, to set up a follow-up appointment. We will sign off. (2) Visual hallucination: Plan: Impression: The patient describes seeing yellow ladders on flat surfaces like vargas all the time, for last few days. Such visions do not affect his visual acuity. It is constant. It does not persist when he closes his eyes. Recommendations/plan: Visual hallucinations are unlikely to be neurological. Potential side effects from chemotherapy medications will be discussed with hematology oncology physician during follow-up appointment. Outpatient follow-up with ophthalmology regarding visual hallucinations. 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 Current brain MRI did not show metastases to brain or skull. The patient has been treated on Lupron as well as abiraterone. Plan As seen above. Admission and Anticipated Discharge Date Admission Date: February 17, 2023 Subjective The patient's mental status has been improved. He is not confused anymore. He has not had any seizure or seizure-like activities. Today, he reports seeing yellow ladders when you look at flat surfaces like wall. Such visual symptoms are persistent, which does not affect visual acuity. EEG was unremarkable. Brain MRI did not show acute pathology. Benign nature of visual symptoms are explained to the patient and family. Review of Systems Review of Systems: All systems reviewed & are unremarkable except as noted in Subjective Physical Exam Physical Exam: General Examination: Constitutional: Well developed person in no acute distress. HENT: Normal exam with inspection. CV: Hearth rhythm is regular. Neck: Supple, no carotid bruits. Lungs: Non-labored and comfortable breathing. Abdomen: Soft, non-tender, non-distended. Skin: No rash or ecchymosis. Extremities: No edema or cyanosis NEUROLOGICAL EXAMINATION: Mental Status: Alert and oriented to place, person and time. Cranial Nerves: II-XII are intact. No nystagmus. Funduscopy: Unable to visualize Motor: 5 out of 5 in all extremities without asymmetry. Tone: Normal without spasticity or rigidity. Sensory: Essentially intact. Coordination: Normal with [id number] and [id number] testing. Speech: Speech fluent, comprehension is intact. Gait: Not assessed. Musculoskeletal: Normal muscle bulk, no atrophy. Results & Data Vital Signs (Past 12 Hours) Vital Signs Temp Pulse Resp BP Pulse Ox O2 Del Method 02/20/23 12:01 36.8 C 86 18 136/92 92 Room Air 02/20/23 08:06 37.0 C 68 18 151/75 H 93 Room Air Laboratory Results Laboratory Results - last 24 hr 02/19/23 02/20/23 20:28 08:01 POC Glucose 91 83 Diagnostic Findings Chest X-Ray 02/17/23 10:49 XR chest 1V portable HISTORY: Confusion. neuro deficit, acute stroke suspected COMPARISON: Chest 10/26/2013. FINDINGS: No pneumothorax. No pleural effusions. The correct silhouette remains enlarged. There is mild diffuse interstitial thickening, unchanged. This is likely chronic. No new focal lung consolidations to suggest a pneumonia. No evidence for pulmonary edema. A few bibasilar linear densities favor subsegmental atelectasis. IMPRESSION: Cardiomegaly and mild chronic interstitial thickening again noted. Otherwise, no acute process within the chest. ACT 112: Negative or not required by law. Electronically signed by: Manuel Holbrook M.D. 02/17/2023 11:[address] 02/17/23 10:[address] DOSE: 1264.25 mGy.cm HISTORY: Confusion. neuro deficit, acute stroke suspected TECHNIQUE: Multiaxial CT images of the head were performed without the use of intravenous contrast. Automated exposure control was utilized for this study. A dose lowering technique was utilized adhering to the principles of ALARA. Comparison: None. Findings: The paranasal sinuses and mastoid air cells are clear. The calvarium and skull base are intact. There is no mass, hematoma, midline shift, acute infarct. White matter hypodensity is nonspecific but suggestive of microvascular ischemic change. The ventricles and sulci demonstrate mild age-related involutional changes. 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 There is an old lacunar infarct within the left basal ganglia. Impression: 1. No acute intracranial abnormality. 2. Old infarcts as described above. ACT 112: Negative or not required by law. Electronically signed by: Manuel Holbrook M.D. 02/17/2023 11:25 AM Head CTA 02/17/23 10:49 HEAD & NECK CTA HISTORY: Confusion. neuro deficit, acute stroke suspected TECHNIQUE: Multiaxial CT images of the head were performed following the intravenous administration of contrast to evaluate the major cerebral vessels. Multiaxial CT images of the neck were also performed following the intravenous administration of contrast to evaluate the major cervical vessels. Maximum intensity projection images were also obtained. A dose lowering technique was utilized adhering to the principles of ALARA. COMPARISON: Noncontrast head CT 02/17/2023. FINDINGS: There is no mass, hematoma, midline shift, or acute infarct. Visualized intracranial internal carotid arteries, distal vertebral arteries, and basilar artery are widely patent. There is no significant stenosis, occlusion, or aneurysm seen within the bilateral ACAs, MCAs, or vice president of business development. An old left parietal lobe infarct again noted. Moderate calcified plaque within the bilateral carotid siphons. The major dural venous sinuses appear patent. The aortic arch and proximal great vessels are widely patent. There is no significant stenosis, occlusion, or dissection identified within the right common carotid, right internal carotid, or vertebral arteries. Moderate calcified plaque within the left carotid bifurcation resulting in up to 40% focal stenosis. Otherwise, the remaining left common and internal carotid arteries are widely patent. IMPRESSION: 1. No significant stenosis, occlusion, or aneurysm within the [place]. 2. Approximately 40% focal stenosis within the left carotid bifurcation due to the moderate calcified plaque. 3. The right carotid arteries and bilateral vertebral arteries are widely patent. ACT 112: Negative or not required by law. Electronically signed by: Manuel Holbrook M.D. 02/17/2023 11:32 AM Neck CTA 02/17/23 10:49 HEAD & NECK CTA HISTORY: Confusion. neuro deficit, acute stroke suspected TECHNIQUE: Multiaxial CT images of the head were performed following the intravenous administration of contrast to evaluate the major cerebral vessels. Multiaxial CT images of the neck were also performed following the intravenous administration of contrast to evaluate the major cervical vessels. Maximum intensity projection images were also obtained. A dose lowering technique was utilized adhering to the principles of ALARA. COMPARISON: Noncontrast head CT 02/17/2023. FINDINGS: There is no mass, hematoma, midline shift, or acute infarct. Visualized intracranial internal carotid arteries, distal vertebral arteries, and basilar artery are widely patent. There is no significant stenosis, occlusion, or aneurysm seen within the bilateral ACAs, MCAs, or vice president of business development. An old left parietal lobe infarct again noted. Moderate calcified plaque within the bilateral carotid siphons. The major dural venous sinuses appear patent. The aortic arch and proximal great vessels are widely patent. There is no significant stenosis, occlusion, or dissection identified within the right common carotid, right internal carotid, or vertebral arteries. Moderate calcified plaque within the left carotid bifurcation resulting in up to 40% focal stenosis. Otherwise, the remaining left common and internal carotid arteries are widely patent. IMPRESSION: 1. No significant stenosis, occlusion, or aneurysm within the [place]. 2. Approximately 40% focal stenosis within the left carotid bifurcation due to the moderate calcified plaque. 3. The right carotid arteries and bilateral vertebral arteries are widely patent. ACT 112: Negative or not required by law. Electronically signed by: Manuel Holbrook M.D. 02/17/2023 11:32 AM Brain MRI 02/17/23 13:29 Brain MRI WITH AND WITHOUT CONTRAST HISTORY: Left-sided weakness. Altered mental status. Possible seizure. ?seizure vs CVA. hx prostate ca TECHNIQUE: Multiplanar multisequence MRI of the brain was performed both before and after the intravenous administration of contrast. COMPARISON STUDY: Head CT 02/17/2023. FINDINGS: There is no mass, hematoma, midline shift, or acute infarct. The paranasal sinuses are clear. The mastoid air cells are clear. The ventricles and sulci demonstrate mild age-related involutional changes. Scattered foci of T2 hyperintensity seen within the periventricular and subcortical white matter are nonspecific but suggestive of mild microvascular ischemic changes. The major vascular flow voids at the skull base are well-maintained. Old small infarct within the left parietal lobe and an old lacunar infarct within the left basal ganglia again noted. The temporal lobes are symmetric. There is motion artifact. No abnormal enhancement. IMPRESSION: 1. Motion artifact. No definite acute infarct or intracranial hemorrhage. 2. Old left-sided infarcts again noted. ACT 112: Negative or not required by law. Electronically signed by: Manuel Holbrook M.D. 02/17/2023 5:23 PM EEG-- unremarkable
--- NOTE | 2023-02-20 17:52 | Discharge Summary ---
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 Last known well was 6:50 AM when seen by . Was found incoherent and intermittently responsive to and with difficulty to arouse, and had left- sided weakness and left gaze deviation. Diaphoretic on EMS arrival and incontinent of stool. At ER assessment he is nonverbal with left gaze deviation. At time of bedside assessment patient is sedated following lorazepam, fosphenytoin, and Keppra dosing. His gaze deviation improved following these. Pt does not arouse or answer questions, but is guarding his airway and does not withdraw to thumb pinch bilaterally. Collateral is collected from his at bedside. Patient does not have a history of seizure. No family history of seizures. Does have family history of strokes. He does have a history of prostate cancer being treated with leuprolide, Zytiga, and prednisone 5mg daily with R hip metastasis. No known other sites of mets.Tongue lacerations are not appreciated. He does not use any medical or recreational marijuana. Patient follows with Dr. Vargas Urology and Dr. Berg [facility] [place] [facility] [place] He used to be on aspirin for primary prevention, however was previously stopped as an outpatient as he was using it for primary prevention and had pancreatic cyst evaluation performed during which it was held periprocedurally and then not restarted on discussion with his PCP. Medical History: Reviewed Medications: Reviewed Surgical History: Reviewed Family history: Reviewed Allergies: Reviewed Social History: Nonsmoker, social ETOH use. Code Status: DNR/DNI. Okay with intubation for airway protection outside of code setting Principal Diagnosis seizure disorder covid infection,no pneumonia Discharge Exam pt is without additional visual hallucinations lungs are clear Discharge Data Allergies Allergy/AdvReac Type Severity Reaction Status Date / Time POISON SUDHEER Allergy Unknown IRRITATION Uncoded 02/17/23 15:20 Consultations 02/17/23 12:27 ED Decision to Admit Stat 02/17/23 16:27 Consult Neurology Routine Ordered Studies 02/17/23 10:49 CT angio head w con Stat CT angio neck with con Stat CT head/brain wo con Stat 02/17/23 13:29 MR brain seizure wo/w con Stat Hospital Course (1) AMS (altered mental status): acute encephalopathy suspect seizure, moderate risk Initially some lateralizing signsCase was reviewed by [facility] [place]roke. Thrombolytic not indicated. imaging with chronic CVA and microvascular changes, mri no mets no acute changes seizure treatment. tx 1.5mg ativan, phosphenytoin, and keppra given. Neurology feels clinically may have been seizure, possible influenced by luporon which is treating prostate CA EEG,recommended, completed 02/20/23 no epileptogenic spikes seen, recommend ation to continue keppra and follow up neurology -Keppra twice daily continued recommended by neurology continue statin for CAD/CVD risk factor modification, no cva so no need for high potency Covid 19 test positive, is on chronic prednisone, no pulmonary sx, pneumonia ruled out likely cause of encephalopathy Updated on COVID precautions at the bedside, given instructions at discharge History of prostate cancer with metastasis to hip chronic stable with workup in progress Patient undergoing deprivation therapy, is on Abiraterone, Lupron, and prednisone. 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 Hypertension chronic stable CODE STATUS: DNR/DNI, but would want intubation for airway protection/stabilization if indicated outside of code setting one of 4 blood cultures shows coag neg staph, likely contaminant (2) Prostate cancer metastatic to bone: (3) Hypercholesteremia: Total Time Total Time Spent Total Time Spent (In Minutes): It required greater than 30 minutes to prepare this patient for discharge Discharge Plan Discharge Items Patient Disposition: Home - Self-Care Reason For Visit: AMS, CVA VS SEIZURE Discharge Diagnosis: seizure disorder covid infection Condition on Discharge: Serious Activity: Per Instructions section Activity Comment: no driving no strenous exercise Non-emergency contact: Primary Care Provider and Neurologist Call non-emergency contact if: your symptoms worsen Follow-up/Referrals: Iglesia Chambers, [Primary Care Provider] - Diet: Regular Addtl Attending Provider Instructions: Discharge Instructions for Epilepsy You have been diagnosed with epilepsy, a disorder of recurring seizures.When you have a seizure,an electrical disturbancehappens in your brain. There are different kinds of seizures, and each person may have one or many types of seizures. Here are some guidelines for you and your family. If you have a seizure Ask friends and family members to learn how to manage a seizure. Also tell themto do the following if you have a seizure: * Clear the area to prevent injury. * Position you on a flat, carpeted surface, if possible. * Dont try to restrain you. * Dont put anything in your mouth. * Turn you onto your side if you start to vomit. * Keep track of the date and time the seizure started, how long it lasted, if you lost consciousness, a description of your body movements, what provoked the seizure (if known), and any injuries you suffered. Using a watch may help keep correct time of events. * Stay with you until you regain consciousness. * [id number] the seizure is longer than 5 minutes, if there are multiple seizures, or if you don't start to wake up after the seizure stops. You'll will probably be confused and drowsy after the seizure. Rest until you feel recovered enough to continue your pre-seizure activity. Activities Followingare some things to consider: * Enjoy your normal activities. Most people with epilepsy lead normal lives. * Don't do hazardous activities, such as mountain climbing or scuba diving. A seizure under these conditions could lead to a fatal accident. * Many other activities can be very dangerous if you were to have a seizure. If you are on a ladder or roof or operating heavy equipment or sharp tools, you could be seriously injured. Talk with your healthcare provider about any activities you are unsure of. * Don't swim alone or take part in other similar activities without others nearby. * Ask your healthcare provider about any restrictions on driving or other activities. * Check with your state department of public safety to learn whether there are any driving limits based on your condition. Each state has different laws on driving after seizures. Other home care Other considerations: * Take yourmedicine exactly as directed. Skipping doses can affect the way your body handles the medicine, which could cause you to have a seizure. * Dont drink alcohol or use anymedicine without talking with yourproviderfirst. * Make sure all of your healthcare providers have a list of all your medicines.Seizure medicines may interact with other medicines. * Think about how to keep small children safe if you are caring for them when you have a a seizure. * Wear a medical alert pendant or bracelet that alerts others to your condition. The ID should include any medicine allergies * Join a local support group. Ask yourproviderfor names and phone numbers. [id number] Tell your family members or friends to [id number] away if you have: * Seizure that lasts more than 5minutes * Multiple seizures in a row * Not regained consciousness after the seizure stops When to call your healthcare provider You or your family members or friends should call yourproviderright away if you have: * Seizures that are getting longer and worse * Seizures that are different from those youve had in the past * Questions about missed medicines or medicine interactions * Seizures strong enough to cause injury * Medicine side effects * Skin rash * Fever of 100.4F (38C) or higher, or as directed by your provider * Symptoms get worse or you have new symptoms Addtl Suede Brusher Provider Instructions: Please discuss Lupron with your urologist please see an electric lift truck driver as recommended You have been diagnosed with covid infection, it would be recommended that you quarantine yourself for 10 days from your first test or first symptoms, and if at the 10th day you have no symptoms the you can come off quarantine but use common sense precautions. Quarantine means attempting to stay away from people who have not had an active covid infection in the past, and if you have to be around others to wear a mask even if you are indoors, do not share a room to sleep in with others until you are out of quarantine. If you still have symptoms at the 10th day, continue to quarantine until you are symptom free for 48 hours Pending Studies at Discharge: No Stand-Alone Forms: My [facility], Smoking Cessation Medications and DC Order Prescriptions: New levetiracetam [Keppra] 500 mg tablet 500 mg PO BID Qty: 60 5RF Continued lisinopril 10 mg tablet 10 mg PO HS Qty: 90 3RF simvastatin 20 mg tablet 20 mg PO HS Qty: 90 3RF abiraterone 500 mg tablet 1,000 mg PO DAILY Rx Instructions: must be taken on empty stomach, at least 1 hr before or 2 hrs after a meal/food cholecalciferol (vitamin D3) 1,000 unit (25 mcg) tablet 1,000 units PO DAILY prednisone 5 mg tablet 5 mg PO DAILY Lupron Depot (6 Month) 45 mg syringe kit 0 mg IM Q24W ibuprofen [Advil] 200 mg tablet 600 mg PO QID PRN (Reason: fever or pain) Qty: 30 0RF Discharge Orders: Discharge Order (Routine); Ordered 02/20/23 Ordered By: Jose Soto Admission Data Admit Date/Time: 02/17/23 13:29 Attending Provider: Jose Soto Admit Provider: Juancarlos Man Primary Care Provider: Iglesia Chambers Other Providers: Juancarlos Man ; Zeke Hernandez Coding Level of Care Code 23658 INP/OBS DISCH >30 MIN Diagnoses AMS (altered mental status) R41.82 Prostate cancer metastatic to bone C61; C79.51 Hypercholesteremia E78.00
== END 2023-02-20 17:53 | disposition home or self-care (01) | DRG 178 ==
LOC: ED 11:00 → SUATTDRO 13:29 → EDINP 13:29 → 2S 16:27